=== PATIENT | male | born 1965 | race Caucasian/White ===

== ENCOUNTER 2017-03-28 05:56 | Day surgery (SDC) | payer OTHER, MEDICARE ==
[~2017-03-28] VITALS: Ht 179.1 cm; Wt 70.3 kg
[~2017-03-28 05:56] MED LIST: AMLO10TA2 PO; ASPI1TAB PO; CLON-412 PO; IRON65TA PO; METO1TAB33 PO; MINO10TA PO; RENATAB5 PO; RENV2TAB PO; VITA100067 PO
[2017-03-28] MEDS ORDERED: NS 1,000 ML IV SCH (06:00)
[2017-03-28] MEDS ORDERED: BUPIVACAINE/EPIN 0.25% 30 ML VIAL As Ordered ONE (07:11)
[2017-03-28] MEDS ORDERED: PROPOFOL 200 MG/20 ML VIAL As Ordered ONE (07:14)
[2017-03-28] MEDS ORDERED: GLYCOPYRROLATE INJ 0.2 MG/ML 2 ML VIAL As Ordered ONE (07:14)
[2017-03-28] MEDS ORDERED: ROCURONIUM BROMIDE 50 MG/5 ML VIAL/SYRINGE As Ordered ONE (07:14)
[2017-03-28] MEDS ORDERED: ONDANSETRON 4MG/2ML VIAL (J2405) As Ordered ONE (07:14)
[2017-03-28] MEDS ORDERED: NEOSTIGMINE 1MG/ML 5 ML SYRINGE (J2710) As Ordered ONE (07:14)
[2017-03-28] MEDS ORDERED: MIDAZOLAM INJ 2 MG/2 ML VIAL (J2250) As Ordered ONE (07:14)
[2017-03-28] MEDS ORDERED: fentaNYL 100 MCG/2 ML INJECTION (J3010) As Ordered ONE (07:15)
[2017-03-28] MEDS ORDERED: ONDANSETRON 4MG/2ML VIAL (J2405) IV PRN (09:00)
[2017-03-28] MEDS ORDERED: HYDROmorphone HCL 1 MG/ML SYRINGE (J1170) IV PRN (09:00)
[2017-03-28] MEDS ORDERED: fentaNYL 100 MCG/2 ML INJECTION (J3010) IV PRN (09:00)
[2017-03-28] MEDS ORDERED: NORCO, ANEXSIA 5/325MG TABLET (HYDROcodone/ACETAMINOPHEN) PO PRN (09:00)
[2017-03-28] MEDS: PERCOCET 5MG/325MG TAB PO PRN ×2 (09:04→09:35)
[2017-03-28 11:10] VITALS: BP 143/68
--- NOTE | 2017-03-31 06:15 | RO ---
DATE OF PROCEDURE: 03/28/2017 PREOPERATIVE DIAGNOSIS: Incarcerated umbilical hernia. POSTOPERATIVE DIAGNOSIS: Incarcerated umbilical hernia. PROCEDURE: Laparoscopic incarcerated umbilical hernia repair. SURGEON: Dr. Oconnor SPEECH WRITER: Dr. Morgan ANESTHESIA: General. ESTIMATED BLOOD LOSS: 5. COMPLICATIONS: None. INDICATION FOR PROCEDURE: The patient is a 51-year-old male presents with a history of peritoneal dialysis and umbilical hernia. He has had complications with the hernia increasing in size recently and becoming more tender. I was unable to reduce it in the office and he requested to have it repaired. Recommendation to proceed with laparoscopic, possible open repair. Risks and benefits of the procedure not limited but including bleeding, infection, hernia recurrence, hernia formation, damage to surrounding structures, need for further surgery were discussed in detail with the patient. Informed consent was obtained and procedure was planned. DESCRIPTION OF PROCEDURE: The patient was brought back to operating room #6. After sufficient sedation, the abdomen was sterilely prepped and draped. Next, a time-out was done to confirm proper patient and proper procedure. Following that a 5 mm incision made in left upper quadrant, Veress needle was inserted and the abdomen was insufflated to 50 mmHg. Next a 5 mm Optiview port was used to gain access to the abdomen. Once the abdomen was entered, another 5 mm port was placed in left lower quadrant. Using the Enseal, some adhesions were taken down from his peritoneal dialysis catheter entry site and some omentum that was stuck in his hernia was gently reduced. The hernia sac was excised using the Enseal and brought out through the port site. Next, a 9 cm round Parietex mesh had #0 Vicryl sutures placed in all four corners. This was rolled up, placed inside of the abdomen. Juan Carlos-Vee needle was used to bring the sutures through the abdominal wall as a transfascial suture. These four sutures were then tied in place to hold the mesh. A row of SecureStrap tacks were then placed around the perimeter of the mesh with careful attention made to make sure that we did not place any of the tacks into his peritoneal dialysis catheter as it tunneled through the abdominal wall. Once the mesh was then placed, the abdomen was examined one last time. There was a large left inguinal hernia that was examined. A picture was taken just as documentation to be placed in the chart. Postoperatively, when he woke up, I asked him if he had any problems with this and he denied ever having any knowledge of it. No pain or bulge or anything from this. After pictures taken, the abdomen was desufflated. Skin incisions were closed with #4-0 Vicryl subcuticular sutures. The abdomen cleaned and dried. Steri-Strips, 4 x 4 and Tegaderm were applied, thus ending procedure.
== END 2017-03-28 11:19 | disposition home or self-care (01) ==
LOC: M SDC 05:56
PROVIDERS: ATTEND Surgery
DX: K42.0 Umbilical hernia with obstruction, without gangrene (principal); I12.9 Hypertensive chronic kidney disease with stage 1 through stage 4 chronic kidney disease, or unspecified chronic kidney disease; N18.9 Chronic kidney disease, unspecified; F17.210 Nicotine dependence, cigarettes, uncomplicated; Z79.82 Long term (current) use of aspirin; Z79.899 Other long term (current) drug therapy; Q61.3 Polycystic kidney, unspecified
CPT/HCPCS: 36415; 49653; 84132; C1781; J0690; J2250; J2405; J2710; J3010

== ENCOUNTER 2017-08-03 11:02 | Emergency (ER) | payer MEDICARE, OTHER ==
[~2017-08-03] VITALS: Ht 177.8 cm; Wt 67.7 kg
[2017-08-03] MEDS ORDERED: LIQULIQ6 PO (11:23)
--- NOTE | 2017-08-03 12:54 | REP ---
Clinical: Headache . Comparison: 01/19/2015 . Findings: The ventricles, sulci, and cisterns are normal in position and appearance. Hopkins-white differentiation is maintained. No acute intracranial hemorrhage, mass/mass effect, pathology or trauma/injury. No evidence for acute infarction. No extra-axial fluid collection. Calvarium is intact. Paranasal sinuses and mastoid air cells are clear. Impression: Normal noncontrast head CT. No evidence for acute intracranial pathology or trauma/injury. Signed by Samuel Kim MD 08/03/2017 12:46 P
[2017-08-03 13:16] LABS: BASO # 0.1 10^3/uL (0.0-0.2); BASO % 0.7 % (0.0-1.0); EOS % 0.4 % (0.0-3.0); IMMATURE GRANULOCYTE % 0.3 % (0-0); LYMPH # 1.4 10^3/uL (1.5-4.5); LYMPH % 18.2 % (24.0-44.0); MEAN CORPUSCULAR HEMOGLOBIN 30.8 pg (27.0-33.0); MONO # 0.5 10^3/uL (0.0-0.8); MONO % 6.2 % (0.0-5.0); NEUTROPHILS # 5.6 10^3/uL (1.8-7.7); NEUTROPHILS % 74.2 % (36.0-66.0); PLATELET COUNT, AUTOMATED 281 10^3/uL (150-450); RED CELL DISTRIBUTION WIDTH 12.6 % (11.5-14.5); WHITE BLOOD COUNT 7.6 10^3/uL (4.0-10.0)
[2017-08-03 13:32] LABS: CALCIUM LEVEL 7.6 MG/DL (8.5-10.1); CREATININE FOR GFR 5.75 MG/DL (0.70-1.30); POTASSIUM SERUM 4.2 MEQ/L (3.5-5.1)
[2017-08-03 13:38] LABS: INR 0.87
[2017-08-03] MEDS ORDERED: NORCOTAB PO (14:04)
[2017-08-03] MEDS ORDERED: NORCO, ANEXSIA 5/325MG TABLET (HYDROcodone/ACETAMINOPHEN) PO ONE (14:15)
[2017-08-03 14:25] VITALS: BP 142/69
--- NOTE | 2017-08-03 19:48 | ECGEPIP ---
Stationary ECG Study [facility] - ED Test Date: 2017-08-03 Pat Name: OLAF RNENER Department: Room: - Gender: M Banquet Waiter/Waitress: : [id number] Requested By: NAREN Bowman PA-C Order Number: [id number] Reading MD: Erica Rivera Measurements Intervals [place] Rate: 60 P: 80 MA: 164 QRS: 84 QRSD: 102 T: 55 QT: 440 QTc: 441 Interpretive Statements SINUS RHYTHM DELAYED R WAVE PROGRESSION NONSPECIFIC ST T WAVE CHANGES DELAYED R WAVE PROGRESSION NO OLD ECG FOR COMPARISON Electronically Signed On 08-03-2017 19:48:37 EST by Erica Rivera
== END 2017-08-03 14:26 | disposition home or self-care (01) ==
LOC: M ED 11:02
DX: R51 Headache (principal); I12.0 Hypertensive chronic kidney disease with stage 5 chronic kidney disease or end stage renal disease; N18.6 End stage renal disease; Z99.2 Dependence on renal dialysis; Z72.0 Tobacco use

== ENCOUNTER 2017-08-12 16:21 | Emergency (ER) | payer MEDICARE, OTHER | END 2017-08-12 19:07 | disposition home or self-care (01) | LOC: M ED 16:21 | DX: R51 Headache (principal); I12.0 Hypertensive chronic kidney disease with stage 5 chronic kidney disease or end stage renal disease; N18.6 End stage renal disease; Z99.2 Dependence on renal dialysis; F17.200 Nicotine dependence, unspecified, uncomplicated | CPT/HCPCS: 99283 ==

== ENCOUNTER → 2017-08-22 | Outpatient (REF) | payer MEDICARE, OTHER ==
[2017-08-22 14:05] LABS: BASO # 0.1 10^3/uL (0.0-0.2); BASO % 1.1 % (0.0-1.0); EOS # 0.2 10^3/uL (0.0-0.50); EOS % 1.8 % (0.0-3.0); HEMOGLOBIN 12.3 g/dl (14.0-18.0); IMMATURE GRANULOCYTE % 0.3 % (0-0); LYMPH # 2.1 10^3/uL (1.5-4.5); LYMPH % 23.9 % (24.0-44.0); MEAN CORPUSCULAR HEMOGLOBIN 30.7 pg (27.0-33.0); MEAN CORPUSCULAR HGB CONC 34.2 g/dl (32.0-36.5); MEAN CORPUSCULAR VOLUME 89.8 fl (80.0-96.0); MONO % 11.1 % (0.0-5.0); NEUTROPHILS # 5.5 10^3/uL (1.8-7.7); NEUTROPHILS % 61.8 % (36.0-66.0); PLATELET COUNT, AUTOMATED 294 10^3/uL (150-450); RED BLOOD COUNT 4.01 10^6/uL (4.30-6.10); RED CELL DISTRIBUTION WIDTH 13.2 % (11.5-14.5); WHITE BLOOD COUNT 8.8 10^3/uL (4.0-10.0)
[2017-08-22 14:34] LABS: ALBUMIN 2.9 GM/DL (3.2-5.2); ALBUMIN/GLOBULIN RATIO 0.85 (1.00-1.93); ALKALINE PHOSPHATASE 75 U/L (45-117); ALT/SGPT 19 U/L (12-78); ANION GAP 8 MEQ/L (8-16); AST/SGOT 22 U/L (7-37); BILIRUBIN,TOTAL 0.4 MG/DL (0.2-1.0); BLOOD UREA NITROGEN 64 MG/DL (7-18); CALCIUM LEVEL 8.3 MG/DL (8.5-10.1); CARBON DIOXIDE LEVEL 28 MEQ/L (21-32); CHLORIDE LEVEL 97 MEQ/L (98-107); CREATININE FOR GFR 5.81 MG/DL (0.70-1.30); GLOMERULAR FILTRATION RATE 10.9 (>56); GLUCOSE, FASTING 93 MG/DL (70-105); RHEUMATOID FACTOR QUANT < 10.0 IU/ML (0-15.0); SODIUM LEVEL 133 MEQ/L (136-145); TOTAL PROTEIN 6.3 GM/DL (6.4-8.2)
[2017-08-22 15:29] LABS: ERYTHROCYTE SEDIMENTATION RATE 16 mm/hr (0-20)
[2017-08-23 14:10] LABS: ANTINUCLEAR ANTIBODIES DIRECT Negative (Negative)
== END ==
LOC: M LAB REF 12:44
DX: R51 Headache (principal)
CPT/HCPCS: 80053

== ENCOUNTER 2017-08-28 09:14 | Emergency (ER) | payer MEDICARE, OTHER ==
[2017-08-28 10:32] LABS: ALBUMIN 2.9 GM/DL (3.2-5.2); ANION GAP 6 MEQ/L (8-16); BLOOD UREA NITROGEN 63 MG/DL (7-18); CARBAMAZEPINE (TEGRETOL) LEVEL 8.4 UG/ML (4.0-10.0); CARBON DIOXIDE LEVEL 30 MEQ/L (21-32); CHLORIDE LEVEL 100 MEQ/L (98-107); CREATININE FOR GFR 5.83 MG/DL (0.70-1.30); GLOMERULAR FILTRATION RATE 10.8 (>56); GLUCOSE, FASTING 90 MG/DL (70-105); PHOSPHORUS LEVEL 3.8 MG/DL (2.5-4.9); SODIUM LEVEL 136 MEQ/L (136-145)
== END 2017-08-28 10:55 | disposition home or self-care (01) ==
LOC: M ED 09:14
DX: T42.1X1A Poisoning by iminostilbenes, accidental (unintentional), initial encounter (principal); Y92.9 Unspecified place or not applicable; Y93.9 Activity, unspecified; I10 Essential (primary) hypertension; N18.6 End stage renal disease; Z99.2 Dependence on renal dialysis; Q61.3 Polycystic kidney, unspecified; G44.009 Cluster headache syndrome, unspecified, not intractable; Z79.82 Long term (current) use of aspirin; Z79.899 Other long term (current) drug therapy
CPT/HCPCS: 80156

== ENCOUNTER → 2018-01-01 | Outpatient (CLI) | payer MEDICARE, OTHER | LOC: M SMT 10:25 | DX: M16.0 Bilateral primary osteoarthritis of hip (principal) | CPT/HCPCS: 73502 ==

== ENCOUNTER 2018-01-19 00:11 | Inpatient (IN) | payer OTHER, MEDICARE ==
[~2018-01-19 00:11] MED LIST changes: -AMLO10TA2 PO; -ASPI1TAB PO; -CLON-412 PO; -IRON65TA PO; -METO1TAB33 PO; -MINO10TA PO; +NALOXONE INJ 2 MG/2 ML SYRINGE (J2310) As Ordered; -RENATAB5 PO; -RENV2TAB PO; -VITA100067 PO
[2018-01-19 01:18] LABS: BASO % 0.4 % (0.0-1.0); EOS # 0.1 10^3/uL (0.0-0.50); EOS % 0.9 % (0.0-3.0); HEMATOCRIT 36.7 % (42.0-52.0); HEMOGLOBIN 12.5 g/dl (13.5-17.5); IMMATURE GRANULOCYTE % 0.3 % (0-3.0); LYMPH # 1.4 10^3/uL (1.5-4.5); LYMPH % 20.1 % (24.0-44.0); MEAN CORPUSCULAR HEMOGLOBIN 31.5 pg (27.0-33.0); MEAN CORPUSCULAR HGB CONC 34.1 g/dl (32.0-36.5); MEAN CORPUSCULAR VOLUME 92.4 fl (80.0-96.0); MONO % 14.7 % (0.0-5.0); NEUTROPHILS # 4.3 10^3/uL (1.8-7.7); NEUTROPHILS % 63.6 % (36.0-66.0); PLATELET COUNT, AUTOMATED 144 10^3/uL (150-450); RED BLOOD COUNT 3.97 10^6/uL (4.30-6.10); WHITE BLOOD COUNT 6.8 10^3/uL (4.0-10.0)
[2018-01-19 01:36] LABS: LACTIC ACID SEPSIS PROTOCOL 1.2 MMOL/L (0.4-2.0)
[2018-01-19 01:43] LABS: ALBUMIN 2.7 GM/DL (3.2-5.2); ALBUMIN/GLOBULIN RATIO 0.73 (1.00-1.93); ALKALINE PHOSPHATASE 82 U/L (45-117); ALT/SGPT 24 U/L (12-78); ANION GAP 10 MEQ/L (8-16); AST/SGOT 24 U/L (7-37); BILIRUBIN,DIRECT 0.1 MG/DL (0.0-0.2); BILIRUBIN,TOTAL 0.3 MG/DL (0.2-1.0); BLOOD UREA NITROGEN 60 MG/DL (7-18); CALCIUM LEVEL 7.9 MG/DL (8.5-10.1); CARBON DIOXIDE LEVEL 26 MEQ/L (21-32); CHLORIDE LEVEL 97 MEQ/L (98-107); CREATININE FOR GFR 8.23 MG/DL (0.70-1.30); GLOMERULAR FILTRATION RATE 7.3 (>56); GLUCOSE, FASTING 146 MG/DL (70-100); POTASSIUM SERUM 2.8 MEQ/L (3.5-5.1); SODIUM LEVEL 133 MEQ/L (136-145); TOTAL PROTEIN 6.4 GM/DL (6.4-8.2)
[2018-01-19 01:44] LABS: CARBAMAZEPINE (TEGRETOL) LEVEL 20.3 UG/ML (4.0-10.0); ETHYL ALCOHOL (ETHANOL) < 0.003 % (0.000-0.010)
[2018-01-19 01:48] LABS: ABG BASE EXCESS -3.3 (-2.0-2.0); ABG HCO3 22.1 MEQ/L (22.0-26.0); ABG O2 SATURATION 95.6 % (95.0-99.0); ABG PARTIAL PRESSURE CO2 40.8 mmHg (35.0-45.0); ABG PARTIAL PRESSURE O2 77.7 mmHg (75.0-100.0); ABG STANDARD HCO3 21.7 MEQ/L (22.0-26.0); ABG TOTAL CO2 23.3 MEQ/L (22.0-29.0); ABG pH (ARTERIAL) 7.351 UNITS (7.350-7.450)
[2018-01-19 02:04] LABS: AMMONIA 11 uMOL/L (<32)
[2018-01-19] MEDS ORDERED: ETOMIDATE INJ 20MG/10ML VIAL As Ordered (02:09)
[2018-01-19] MEDS ORDERED: SUCCINYLCHOLINE INJ 200 MG/10 ML VIAL (J0330) As Ordered (02:09)
[2018-01-19] MEDS ORDERED: PROPOFOL 1,000 MG/100 ML VIAL As Ordered (02:13)
[2018-01-19] MEDS: ETOMIDATE INJ 20MG/10ML VIAL IV ×2 (02:27→03:00)
[2018-01-19] MEDS: SUCCINYLCHOLINE INJ 200 MG/10 ML VIAL (J0330) IV ×2 (02:27→03:00)
[2018-01-19] MEDS: NS 1,000 ML IV (02:58)
[2018-01-19] MEDS: PROPOFOL 1,000 MG in APPROPRIATE DILUENT 1 EA IV ×2 (03:00→04:45)
[2018-01-19] MEDS: CHARCOAL ACTIVATED LIQUID 25 GM/120 ML BTL NG (03:00)
[2018-01-19] MEDS: KCL 10MEQ/100ML SWI (KRUN) 10 MEQ in APPROPRIATE DILUENT 1 EA IV ×5 (03:45→13:30)
[2018-01-19 04:07] LABS: AMPHETAMINES LEVEL URINE NEGATIVE (NEGATIVE); BARBITURATES URINE NEGATIVE (NEGATIVE); BENZODIAZEPINES URINE NEGATIVE (NEGATIVE); CANNABINOIDS URINE NEGATIVE (NEGATIVE); COCAINE METABOLITE URINE NEGATIVE (NEGATIVE); METHADONE URINE NEGATIVE (NEGATIVE); OPIATES URINE NEGATIVE (NEGATIVE); PHENCYCLIDINE URINE NEGATIVE (NEGATIVE)
[2018-01-19] MEDS ORDERED: IPRATROPIUM 0.5MG/ALBUTEROL 2.5MG INH SOL UD 3ML (DUONEB)(J7620) NEB (04:30)
[2018-01-19 04:42] LABS: VALPROIC ACID (DEPAKOTE) 46.1 UG/ML (50.0-100.0)
[2018-01-19 04:43] LABS: ACETAMINOPHEN LEVEL < 2.0 UG/ML (10.0-30.0); ALBUMIN 2.5 GM/DL (3.2-5.2); ALBUMIN/GLOBULIN RATIO 0.78 (1.00-1.93); ALKALINE PHOSPHATASE 80 U/L (45-117); ALT/SGPT 22 U/L (12-78); ANION GAP 13 MEQ/L (8-16); AST/SGOT 23 U/L (7-37); BILIRUBIN,TOTAL 0.4 MG/DL (0.2-1.0); BLOOD UREA NITROGEN 59 MG/DL (7-18); CALCIUM LEVEL 7.1 MG/DL (8.5-10.1); CARBON DIOXIDE LEVEL 24 MEQ/L (21-32); CHLORIDE LEVEL 98 MEQ/L (98-107); CPK CREATINE PHOSPHOKINASE 61 U/L (39-308); GLUCOSE, FASTING 122 MG/DL (70-100); POTASSIUM SERUM 3.2 MEQ/L (3.5-5.1); SALICYLATE LEVEL < 1.7 MG/DL (5.0-30.0); SODIUM LEVEL 135 MEQ/L (136-145); TOTAL PROTEIN 5.7 GM/DL (6.4-8.2)
[2018-01-19 05:02] LABS: CREATININE FOR GFR 8.14 MG/DL (0.70-1.30); GLOMERULAR FILTRATION RATE 7.4 (>56)
[2018-01-19 05:55] LABS: CARBAMAZEPINE (TEGRETOL) LEVEL 19.9 UG/ML (4.0-10.0)
[2018-01-19] MEDS: HEPARIN SOD (PORCINE) 5000 UNITS/ML VIAL SC ×3 (06:33→21:55)
[2018-01-19] MEDS: IPRATROPIUM 0.5MG/ALBUTEROL 2.5MG INH SOL UD 3ML (DUONEB)(J7620) NEB ×4 (08:06→19:35)
[2018-01-19 08:15] LABS: ABG BASE EXCESS -3.5 (-2.0-2.0); ABG HCO3 21.9 MEQ/L (22.0-26.0); ABG O2 SATURATION 99.4 % (95.0-99.0); ABG PARTIAL PRESSURE CO2 40.8 mmHg (35.0-45.0); ABG PARTIAL PRESSURE O2 222.6 mmHg (75.0-100.0); ABG STANDARD HCO3 21.6 MEQ/L (22.0-26.0); ABG TOTAL CO2 23.2 MEQ/L (22.0-29.0); ABG pH (ARTERIAL) 7.348 UNITS (7.350-7.450)
[2018-01-19] MEDS: ASPIRIN 81 MG ENTERIC TAB PO (08:52)
[2018-01-19] MEDS: PANTOPRAZOLE 40MG INJ (PROTONIX) (C9113) IV (08:52)
[2018-01-19] MEDS: amLODIPine 10 MG TAB PO (08:52)
[2018-01-19] MEDS: SENOKOT S TAB PO ×2 (08:52→21:55)
[2018-01-19] MEDS: cloNIDine 0.1 MG TAB PO (08:53)
[2018-01-19 12:50] LABS: BASO % 0.3 % (0.0-1.0); EOS % 0.3 % (0.0-3.0); HEMOGLOBIN 12.7 g/dl (13.5-17.5); IMMATURE GRANULOCYTE % 0.3 % (0-3.0); LYMPH # 0.7 10^3/uL (1.5-4.5); LYMPH % 10.6 % (24.0-44.0); MEAN CORPUSCULAR HEMOGLOBIN 31.1 pg (27.0-33.0); MEAN CORPUSCULAR HGB CONC 33.4 g/dl (32.0-36.5); MEAN CORPUSCULAR VOLUME 92.9 fl (80.0-96.0); MONO # 0.8 10^3/uL (0.0-0.8); MONO % 11.4 % (0.0-5.0); NEUTROPHILS # 5.4 10^3/uL (1.8-7.7); NEUTROPHILS % 77.1 % (36.0-66.0); PLATELET COUNT, AUTOMATED 130 10^3/uL (150-450); RED BLOOD COUNT 4.09 10^6/uL (4.30-6.10); RED CELL DISTRIBUTION WIDTH 12.2 % (11.5-14.5)
[2018-01-19 13:08] LABS: ALBUMIN 2.8 GM/DL (3.2-5.2); ALKALINE PHOSPHATASE 80 U/L (45-117); ALT/SGPT 24 U/L (12-78); ANION GAP 14 MEQ/L (8-16); AST/SGOT 25 U/L (7-37); BILIRUBIN,TOTAL 0.5 MG/DL (0.2-1.0); BLOOD UREA NITROGEN 58 MG/DL (7-18); CALCIUM LEVEL 7.7 MG/DL (8.5-10.1); CARBON DIOXIDE LEVEL 24 MEQ/L (21-32); CHLORIDE LEVEL 98 MEQ/L (98-107); CREATININE FOR GFR 7.96 MG/DL (0.70-1.30); GLOMERULAR FILTRATION RATE 7.6 (>56); GLUCOSE, FASTING 98 MG/DL (70-100); MAGNESIUM LEVEL 2.4 MG/DL (1.8-2.4); POTASSIUM SERUM 3.1 MEQ/L (3.5-5.1); SODIUM LEVEL 136 MEQ/L (136-145); TOTAL PROTEIN 5.9 GM/DL (6.4-8.2)
[2018-01-19 13:14] LABS: VALPROIC ACID (DEPAKOTE) 31.6 UG/ML (50.0-100.0)
[2018-01-19 13:14] LABS: CARBAMAZEPINE (TEGRETOL) LEVEL 14.1 UG/ML (4.0-10.0)
[2018-01-19] MEDS: POTASSIUM CHLORIDE 10 MEQ SR TABLET PO (14:48)
[2018-01-20] MEDS: ACETAMINOPHEN TAB 650MG DOSE (2X325MG) PO ×4 (01:31→19:54)
[2018-01-20] MEDS: IPRATROPIUM 0.5MG/ALBUTEROL 2.5MG INH SOL UD 3ML (DUONEB)(J7620) NEB ×7 (03:49→23:43)
[2018-01-20 05:10] LABS: BASO % 0.3 % (0.0-1.0); EOS % 0.3 % (0.0-3.0); HEMATOCRIT 35.2 % (42.0-52.0); HEMOGLOBIN 12.3 g/dl (13.5-17.5); IMMATURE GRANULOCYTE % 0.3 % (0-3.0); LYMPH # 1.3 10^3/uL (1.5-4.5); MEAN CORPUSCULAR HEMOGLOBIN 31.8 pg (27.0-33.0); MEAN CORPUSCULAR HGB CONC 34.9 g/dl (32.0-36.5); MONO # 1.1 10^3/uL (0.0-0.8); MONO % 15.8 % (0.0-5.0); NEUTROPHILS # 4.2 10^3/uL (1.8-7.7); NEUTROPHILS % 63.3 % (36.0-66.0); PLATELET COUNT, AUTOMATED 123 10^3/uL (150-450); RED BLOOD COUNT 3.87 10^6/uL (4.30-6.10); RED CELL DISTRIBUTION WIDTH 12.1 % (11.5-14.5); WHITE BLOOD COUNT 6.7 10^3/uL (4.0-10.0)
[2018-01-20 05:18] LABS: ALBUMIN 2.4 GM/DL (3.2-5.2); ALBUMIN/GLOBULIN RATIO 0.67 (1.00-1.93); ALKALINE PHOSPHATASE 133 U/L (45-117); ALT/SGPT 47 U/L (12-78); ANION GAP 10 MEQ/L (8-16); AST/SGOT 52 U/L (7-37); BILIRUBIN,TOTAL 0.4 MG/DL (0.2-1.0); BLOOD UREA NITROGEN 53 MG/DL (7-18); CALCIUM LEVEL 7.6 MG/DL (8.5-10.1); CARBON DIOXIDE LEVEL 24 MEQ/L (21-32); CHLORIDE LEVEL 98 MEQ/L (98-107); CREATININE FOR GFR 7.44 MG/DL (0.70-1.30); GLOMERULAR FILTRATION RATE 8.2 (>56); GLUCOSE, FASTING 118 MG/DL (70-100); MAGNESIUM LEVEL 2.2 MG/DL (1.8-2.4); POTASSIUM SERUM 2.8 MEQ/L (3.5-5.1); SODIUM LEVEL 132 MEQ/L (136-145)
[2018-01-20] MEDS: HEPARIN SOD (PORCINE) 5000 UNITS/ML VIAL SC ×3 (05:55→21:07)
[2018-01-20] MEDS: POTASSIUM CHLORIDE 10 MEQ SR TABLET PO (06:17)
[2018-01-20] MEDS: PANTOPRAZOLE 40MG INJ (PROTONIX) (C9113) IV (08:35)
[2018-01-20] MEDS: cloNIDine 0.1 MG TAB PO (08:36)
[2018-01-20] MEDS: amLODIPine 10 MG TAB PO (08:36)
[2018-01-20] MEDS: ASPIRIN 81 MG ENTERIC TAB PO (08:36)
[2018-01-20] MEDS: SENOKOT S TAB PO ×2 (08:36→21:06)
[2018-01-20 11:28] LABS: MAGNESIUM LEVEL 2.3 MG/DL (1.8-2.4)
[2018-01-20] MEDS: POTASSIUM CHLORIDE 10% LIQ 20 MEQ/15 ML UDC PO (11:43)
[2018-01-20] MEDS: VANCOMYCIN HCL 1,000 MG, VIAL MATE ADAPTER 1 EACH in D5W 250 ML IV (17:28)
[2018-01-21] MEDS: ACETAMINOPHEN TAB 650MG DOSE (2X325MG) PO ×4 (00:21→19:55)
[2018-01-21] MEDS: IPRATROPIUM 0.5MG/ALBUTEROL 2.5MG INH SOL UD 3ML (DUONEB)(J7620) NEB ×6 (03:57→23:55)
[2018-01-21 05:24] LABS: BASO % 0.5 % (0.0-1.0); EOS % 0.2 % (0.0-3.0); HEMATOCRIT 33.6 % (42.0-52.0); HEMOGLOBIN 11.3 g/dl (13.5-17.5); IMMATURE GRANULOCYTE % 0.2 % (0-3.0); LYMPH # 1.6 10^3/uL (1.5-4.5); MEAN CORPUSCULAR HGB CONC 33.6 g/dl (32.0-36.5); MEAN CORPUSCULAR VOLUME 92.1 fl (80.0-96.0); MONO # 1.2 10^3/uL (0.0-0.8); MONO % 20.3 % (0.0-5.0); NEUTROPHILS % 51.8 % (36.0-66.0); PLATELET COUNT, AUTOMATED 127 10^3/uL (150-450); RED BLOOD COUNT 3.65 10^6/uL (4.30-6.10); WHITE BLOOD COUNT 5.9 10^3/uL (4.0-10.0)
[2018-01-21 05:42] LABS: ALBUMIN 2.3 GM/DL (3.2-5.2); ALBUMIN/GLOBULIN RATIO 0.66 (1.00-1.93); ALKALINE PHOSPHATASE 128 U/L (45-117); ALT/SGPT 60 U/L (12-78); ANION GAP 12 MEQ/L (8-16); AST/SGOT 47 U/L (7-37); BILIRUBIN,TOTAL 0.3 MG/DL (0.2-1.0); BLOOD UREA NITROGEN 48 MG/DL (7-18); CALCIUM LEVEL 7.7 MG/DL (8.5-10.1); CARBON DIOXIDE LEVEL 24 MEQ/L (21-32); CHLORIDE LEVEL 97 MEQ/L (98-107); CREATININE FOR GFR 6.99 MG/DL (0.70-1.30); GLOMERULAR FILTRATION RATE 8.8 (>56); GLUCOSE, FASTING 106 MG/DL (70-100); MAGNESIUM LEVEL 2.1 MG/DL (1.8-2.4); POTASSIUM SERUM 3.3 MEQ/L (3.5-5.1); SODIUM LEVEL 133 MEQ/L (136-145); TOTAL PROTEIN 5.8 GM/DL (6.4-8.2)
[2018-01-21] MEDS: POTASSIUM CHLORIDE 10 MEQ SR TABLET PO (07:14)
[2018-01-21 08:05] LABS: CARBAMAZEPINE (TEGRETOL) LEVEL 2.2 UG/ML (4.0-10.0); VALPROIC ACID (DEPAKOTE) 8.8 UG/ML (50.0-100.0)
[2018-01-21] MEDS: POTASSIUM CHLORIDE 10% LIQ 20 MEQ/15 ML UDC PO (08:30)
[2018-01-21] MEDS: ASPIRIN 81 MG ENTERIC TAB PO (08:31)
[2018-01-21] MEDS: amLODIPine 10 MG TAB PO (08:31)
[2018-01-21] MEDS: SENOKOT S TAB PO ×2 (08:31→19:55)
[2018-01-21] MEDS: PANTOPRAZOLE 40MG INJ (PROTONIX) (C9113) IV (08:31)
[2018-01-21] MEDS: cloNIDine 0.1 MG TAB PO (08:31)
[2018-01-22] MEDS: IPRATROPIUM 0.5MG/ALBUTEROL 2.5MG INH SOL UD 3ML (DUONEB)(J7620) NEB ×5 (03:51→21:31)
[2018-01-22] MEDS: ACETAMINOPHEN TAB 650MG DOSE (2X325MG) PO ×4 (06:08→20:36)
[2018-01-22 08:52] LABS: BASO % 0.6 % (0.0-1.0); HEMATOCRIT 34.1 % (42.0-52.0); HEMOGLOBIN 11.5 g/dl (13.5-17.5); IMMATURE GRANULOCYTE % 0.1 % (0-3.0); LYMPH # 1.8 10^3/uL (1.5-4.5); LYMPH % 25.6 % (24.0-44.0); MEAN CORPUSCULAR HEMOGLOBIN 31.3 pg (27.0-33.0); MEAN CORPUSCULAR HGB CONC 33.7 g/dl (32.0-36.5); MEAN CORPUSCULAR VOLUME 92.9 fl (80.0-96.0); MONO # 1.4 10^3/uL (0.0-0.8); MONO % 19.7 % (0.0-5.0); NEUTROPHILS # 3.8 10^3/uL (1.8-7.7); PLATELET COUNT, AUTOMATED 176 10^3/uL (150-450); RED BLOOD COUNT 3.67 10^6/uL (4.30-6.10); RED CELL DISTRIBUTION WIDTH 12.3 % (11.5-14.5)
[2018-01-22 09:25] LABS: ALBUMIN 2.6 GM/DL (3.2-5.2); ALBUMIN/GLOBULIN RATIO 0.76 (1.00-1.93); ALKALINE PHOSPHATASE 139 U/L (45-117); ALT/SGPT 91 U/L (12-78); ANION GAP 11 MEQ/L (8-16); AST/SGOT 56 U/L (7-37); BILIRUBIN,TOTAL 0.3 MG/DL (0.2-1.0); BLOOD UREA NITROGEN 48 MG/DL (7-18); CARBON DIOXIDE LEVEL 25 MEQ/L (21-32); CHLORIDE LEVEL 96 MEQ/L (98-107); GLOMERULAR FILTRATION RATE 9.4 (>56); GLUCOSE, FASTING 142 MG/DL (70-100); MAGNESIUM LEVEL 1.9 MG/DL (1.8-2.4); POTASSIUM SERUM 3.9 MEQ/L (3.5-5.1); SODIUM LEVEL 132 MEQ/L (136-145)
[2018-01-22] MEDS: PANTOPRAZOLE 40MG INJ (PROTONIX) (C9113) IV (10:01)
[2018-01-22] MEDS: SENOKOT S TAB PO ×2 (10:01→20:34)
[2018-01-22] MEDS: ASPIRIN 81 MG ENTERIC TAB PO (10:01)
[2018-01-22] MEDS: DIVALPROEX 500MG *ER* TAB PO ×2 (10:02→20:34)
[2018-01-22] MEDS: VERAPAMIL 80 MG TAB PO (10:02)
[2018-01-22] MEDS: POTASSIUM CHLORIDE 10% LIQ 20 MEQ/15 ML UDC PO (10:02)
[2018-01-22] MEDS: cloNIDine 0.1 MG TAB PO (10:03)
[2018-01-22] MEDS: VERAPAMIL 40 MG TAB PO (20:33)
[2018-01-23] MEDS: IPRATROPIUM 0.5MG/ALBUTEROL 2.5MG INH SOL UD 3ML (DUONEB)(J7620) NEB ×7 (00:26→23:15)
[2018-01-23] MEDS: ACETAMINOPHEN TAB 650MG DOSE (2X325MG) PO (00:38)
[2018-01-23] MEDS: DIVALPROEX 500MG *ER* TAB PO ×2 (08:50→21:00)
[2018-01-23] MEDS: VERAPAMIL 40 MG TAB PO ×3 (08:50→21:00)
[2018-01-23] MEDS: POTASSIUM CHLORIDE 10% LIQ 20 MEQ/15 ML UDC PO (08:50)
[2018-01-23] MEDS: cloNIDine 0.1 MG TAB PO (08:50)
[2018-01-23] MEDS: SENOKOT S TAB PO ×2 (08:50→21:00)
[2018-01-23] MEDS: PANTOPRAZOLE 40MG INJ (PROTONIX) (C9113) IV (08:50)
[2018-01-23] MEDS: ASPIRIN 81 MG ENTERIC TAB PO (08:50)
[2018-01-23 09:16] LABS: BASO % 0.4 % (0.0-1.0); HEMATOCRIT 33.6 % (42.0-52.0); HEMOGLOBIN 11.3 g/dl (13.5-17.5); IMMATURE GRANULOCYTE % 0.4 % (0-3.0); LYMPH # 2.5 10^3/uL (1.5-4.5); LYMPH % 28.7 % (24.0-44.0); MEAN CORPUSCULAR HEMOGLOBIN 31.1 pg (27.0-33.0); MEAN CORPUSCULAR HGB CONC 33.6 g/dl (32.0-36.5); MEAN CORPUSCULAR VOLUME 92.6 fl (80.0-96.0); MONO # 1.6 10^3/uL (0.0-0.8); MONO % 19.2 % (0.0-5.0); NEUTROPHILS # 4.4 10^3/uL (1.8-7.7); NEUTROPHILS % 51.3 % (36.0-66.0); PLATELET COUNT, AUTOMATED 245 10^3/uL (150-450); RED BLOOD COUNT 3.63 10^6/uL (4.30-6.10); RED CELL DISTRIBUTION WIDTH 12.4 % (11.5-14.5); WHITE BLOOD COUNT 8.6 10^3/uL (4.0-10.0)
[2018-01-23 09:51] LABS: ALBUMIN 2.7 GM/DL (3.2-5.2); ALBUMIN/GLOBULIN RATIO 0.79 (1.00-1.93); ALKALINE PHOSPHATASE 142 U/L (45-117); ALT/SGPT 111 U/L (12-78); ANION GAP 13 MEQ/L (8-16); AST/SGOT 59 U/L (7-37); BILIRUBIN,TOTAL 0.3 MG/DL (0.2-1.0); BLOOD UREA NITROGEN 49 MG/DL (7-18); CALCIUM LEVEL 8.2 MG/DL (8.5-10.1); CARBON DIOXIDE LEVEL 24 MEQ/L (21-32); CHLORIDE LEVEL 95 MEQ/L (98-107); CREATININE FOR GFR 6.18 MG/DL (0.70-1.30); GLOMERULAR FILTRATION RATE 10.1 (>56); GLUCOSE, FASTING 108 MG/DL (70-100); POTASSIUM SERUM 4.2 MEQ/L (3.5-5.1); SODIUM LEVEL 132 MEQ/L (136-145); TOTAL PROTEIN 6.1 GM/DL (6.4-8.2)
[2018-01-24] MEDS: IPRATROPIUM 0.5MG/ALBUTEROL 2.5MG INH SOL UD 3ML (DUONEB)(J7620) NEB ×3 (04:00→11:10)
[2018-01-24 07:30] LABS: BASO % 0.5 % (0.0-1.0); HEMOGLOBIN 10.5 g/dl (13.5-17.5); IMMATURE GRANULOCYTE % 0.2 % (0-3.0); LYMPH # 2.6 10^3/uL (1.5-4.5); LYMPH % 31.7 % (24.0-44.0); MEAN CORPUSCULAR HEMOGLOBIN 31.6 pg (27.0-33.0); MEAN CORPUSCULAR HGB CONC 33.9 g/dl (32.0-36.5); MEAN CORPUSCULAR VOLUME 93.4 fl (80.0-96.0); MONO # 1.9 10^3/uL (0.0-0.8); MONO % 22.7 % (0.0-5.0); NEUTROPHILS # 3.7 10^3/uL (1.8-7.7); NEUTROPHILS % 44.9 % (36.0-66.0); PLATELET COUNT, AUTOMATED 280 10^3/uL (150-450); RED BLOOD COUNT 3.32 10^6/uL (4.30-6.10); RED CELL DISTRIBUTION WIDTH 12.6 % (11.5-14.5); WHITE BLOOD COUNT 8.2 10^3/uL (4.0-10.0)
[2018-01-24 07:58] LABS: ALBUMIN 2.5 GM/DL (3.2-5.2); ALBUMIN/GLOBULIN RATIO 0.78 (1.00-1.93); ALKALINE PHOSPHATASE 121 U/L (45-117); ALT/SGPT 93 U/L (12-78); ANION GAP 12 MEQ/L (8-16); AST/SGOT 42 U/L (7-37); BILIRUBIN,TOTAL 0.3 MG/DL (0.2-1.0); BLOOD UREA NITROGEN 49 MG/DL (7-18); CALCIUM LEVEL 8.1 MG/DL (8.5-10.1); CARBON DIOXIDE LEVEL 25 MEQ/L (21-32); CHLORIDE LEVEL 95 MEQ/L (98-107); CREATININE FOR GFR 5.81 MG/DL (0.70-1.30); GLOMERULAR FILTRATION RATE 10.9 (>56); GLUCOSE, FASTING 96 MG/DL (70-100); MAGNESIUM LEVEL 1.9 MG/DL (1.8-2.4); POTASSIUM SERUM 4.8 MEQ/L (3.5-5.1); SODIUM LEVEL 132 MEQ/L (136-145); TOTAL PROTEIN 5.7 GM/DL (6.4-8.2)
[2018-01-24] MEDS: cloNIDine 0.1 MG TAB PO (09:00)
[2018-01-24] MEDS: VERAPAMIL 40 MG TAB PO (09:00)
[2018-01-24] MEDS: ASPIRIN 81 MG ENTERIC TAB PO (10:06)
[2018-01-24] MEDS: SENOKOT S TAB PO (10:06)
[2018-01-24] MEDS: POTASSIUM CHLORIDE 10% LIQ 20 MEQ/15 ML UDC PO (10:06)
[2018-01-24] MEDS: DIVALPROEX 500MG *ER* TAB PO (10:06)
[2018-01-24] MEDS: PANTOPRAZOLE 40MG INJ (PROTONIX) (C9113) IV (10:07)
== END 2018-01-24 14:24 | disposition home or self-care (01) | DRG 917 ==
LOC: M MSPAV 01-21 12:55 → M ED 00:11 → M ED INP 02:58 → M ICU 04:50
PROC: 5A1945Z Respiratory Ventilation, 24-96 Consecutive Hours (ICD-10-PCS; principal; 2018-01-19)
DX: T42.1X1A Poisoning by iminostilbenes, accidental (unintentional), initial encounter (principal); N18.6 End stage renal disease; J96.90 Respiratory failure, unspecified, unspecified whether with hypoxia or hypercapnia; Q61.3 Polycystic kidney, unspecified; R78.81 Bacteremia; E87.6 Hypokalemia; I10 Essential (primary) hypertension; G44.029 Chronic cluster headache, not intractable; I67.1 Cerebral aneurysm, nonruptured; Z79.82 Long term (current) use of aspirin; Z79.899 Other long term (current) drug therapy; F17.210 Nicotine dependence, cigarettes, uncomplicated

== ENCOUNTER → 2018-01-27 | Outpatient (CLI) | payer MEDICARE, OTHER ==
[2018-01-27 15:03] LABS: ALBUMIN/GLOBULIN RATIO 0.83 (1.00-1.93); ALKALINE PHOSPHATASE 106 U/L (45-117); ALT/SGPT 59 U/L (12-78); ANION GAP 12 MEQ/L (8-16); AST/SGOT 21 U/L (7-37); BILIRUBIN,TOTAL 0.3 MG/DL (0.2-1.0); BLOOD UREA NITROGEN 62 MG/DL (7-18); CALCIUM LEVEL 8.9 MG/DL (8.5-10.1); CARBON DIOXIDE LEVEL 28 MEQ/L (21-32); CHLORIDE LEVEL 95 MEQ/L (98-107); CREATININE FOR GFR 6.64 MG/DL (0.70-1.30); GLOMERULAR FILTRATION RATE 9.3 (>56); GLUCOSE, FASTING 73 MG/DL (70-100); SODIUM LEVEL 135 MEQ/L (136-145); TOTAL PROTEIN 6.6 GM/DL (6.4-8.2); VALPROIC ACID (DEPAKOTE) 46.2 UG/ML (50.0-100.0)
[2018-01-27 15:04] LABS: POTASSIUM SERUM 5.4 MEQ/L (3.5-5.1)
== END ==
LOC: M SMT 12:18
DX: G44.009 Cluster headache syndrome, unspecified, not intractable (principal); Z51.81 Encounter for therapeutic drug level monitoring; Z79.899 Other long term (current) drug therapy

== ENCOUNTER → 2018-01-27 | Outpatient (CLI) | payer MEDICARE, OTHER ==
[2018-01-27 14:21] LABS: BASO # 0.1 10^3/uL (0.0-0.2); BASO % 0.8 % (0.0-1.0); HEMATOCRIT 36.6 % (42.0-52.0); HEMOGLOBIN 11.9 g/dl (13.5-17.5); IMMATURE GRANULOCYTE % 0.2 % (0-3.0); LYMPH # 3.1 10^3/uL (1.5-4.5); LYMPH % 31.9 % (24.0-44.0); MEAN CORPUSCULAR HEMOGLOBIN 30.8 pg (27.0-33.0); MEAN CORPUSCULAR HGB CONC 32.5 g/dl (32.0-36.5); MEAN CORPUSCULAR VOLUME 94.8 fl (80.0-96.0); MONO # 1.6 10^3/uL (0.0-0.8); MONO % 16.5 % (0.0-5.0); NEUTROPHILS % 50.6 % (36.0-66.0); PLATELET COUNT, AUTOMATED 525 10^3/uL (150-450); RED BLOOD COUNT 3.86 10^6/uL (4.30-6.10); RED CELL DISTRIBUTION WIDTH 12.5 % (11.5-14.5); WHITE BLOOD COUNT 9.8 10^3/uL (4.0-10.0)
[2018-01-27 15:04] LABS: C REACTIVE PROTEIN QUANTITATIV < 0.30 MG/DL (0.00-0.30)
[2018-01-27 15:15] LABS: ERYTHROCYTE SEDIMENTATION RATE 26 mm/hr (0-20)
== END ==
LOC: M SMT 12:12
DX: R78.81 Bacteremia (principal); G44.009 Cluster headache syndrome, unspecified, not intractable; Z51.81 Encounter for therapeutic drug level monitoring; Z79.899 Other long term (current) drug therapy
CPT/HCPCS: 80164

== ENCOUNTER 2018-02-06 05:50 | Day surgery (SDC) | payer MEDICARE, OTHER ==
[2018-02-06] MEDS ORDERED: LIDOCAINE 1% MDV 20ML VIAL SQ (06:00)
[2018-02-06] MEDS: LR 1,000 ML IV (06:25)
[2018-02-06 06:39] LABS: POTASSIUM SERUM 4.6 MEQ/L (3.5-5.1)
[2018-02-06] MEDS ORDERED: ONDANSETRON 4MG/2ML VIAL (J2405) As Ordered (07:24)
[2018-02-06] MEDS ORDERED: fentaNYL 250 MCG/5 ML INJECTION (J3010) As Ordered (07:24)
[2018-02-06] MEDS ORDERED: MIDAZOLAM INJ 2 MG/2 ML VIAL (J2250) As Ordered (07:24)
[2018-02-06] MEDS ORDERED: dexameTHASONE 4 MG/ML 1ML VIAL (J1100) As Ordered (07:24)
[2018-02-06] MEDS ORDERED: LIDOCAINE 2% INJ 100 MG/5 ML SDV (FOR ANES.) As Ordered (07:24)
[2018-02-06] MEDS ORDERED: ROCURONIUM BROMIDE 50 MG/5 ML VIAL As Ordered (07:24)
[2018-02-06] MEDS ORDERED: PROPOFOL 200 MG/20 ML VIAL As Ordered (07:24)
[2018-02-06] MEDS: BUPIVACAINE/EPIN 0.25% 30 ML VIAL As Ordered (08:00)
[2018-02-06] MEDS ORDERED: GLYCOPYRROLATE INJ 0.2 MG/ML 2 ML VIAL As Ordered ×2 (08:36)
[2018-02-06] MEDS ORDERED: NEOSTIGMINE 10 MG/10 ML VIAL (J2710) As Ordered (08:36)
[2018-02-06] MEDS ORDERED: fentaNYL 100 MCG/2 ML INJECTION (J3010) IV (09:30)
[2018-02-06] MEDS ORDERED: METOCLOPRAMIDE INJ 10MG/2ML VIAL (J2765) IV (09:30)
[2018-02-06] MEDS ORDERED: NS 1,000 ML IV (09:30)
[2018-02-06] MEDS ORDERED: ONDANSETRON 4MG/2ML VIAL (J2405) IV (09:30)
[2018-02-06] MEDS ORDERED: NORCO, ANEXSIA 5/325MG TABLET (HYDROcodone/ACETAMINOPHEN) PO (09:30)
== END 2018-02-06 11:29 | disposition home or self-care (01) ==
LOC: M SDC 05:50
DX: K40.30 Unilateral inguinal hernia, with obstruction, without gangrene, not specified as recurrent (principal); D17.6 Benign lipomatous neoplasm of spermatic cord; G44.009 Cluster headache syndrome, unspecified, not intractable; N19 Unspecified kidney failure; Z99.2 Dependence on renal dialysis; I10 Essential (primary) hypertension; F17.210 Nicotine dependence, cigarettes, uncomplicated; Z79.899 Other long term (current) drug therapy; Z79.82 Long term (current) use of aspirin
CPT/HCPCS: 49650

== ENCOUNTER → 2019-12-10 | Outpatient (CLI) | payer MEDICARE, OTHER ==
[~2019-12-10] MED LIST changes: +AMLO10TA5 PO; +ASPI81TA26 PO; +CARB100T PO; +CLON-412 PO; +DEPA250T32 PO; +DEPA500T2 PO; +DIVA500T9 PO; +HYDR-3715 PO; +IRON65TA PO; +LIQULIQ6 PO; +METO1TAB33 PO; +MINO10TA PO; -NALOXONE INJ 2 MG/2 ML SYRINGE (J2310) As Ordered; +RENATAB5 PO; +RENV2TAB PO; +SENN1TAB41 PO; +VERA40TA PO; +VITA100067 PO; +[UNRECOGNIZED DRUG - CODE] PO
--- NOTE | 2019-12-10 12:22 | REPPI ---
REASON FOR EXAM: Dyspnea. The latest prior for comparison is a portable examination of 01/19/2018. The cardiomediastinal silhouette is unchanged and within normal limits. The lung bahena are clear. The pleural angles are sharp. There is a thin air density beneath the diaphragmatic surface of the right lung. The osseous structures are stable and intact. IMPRESSION: Thin right-sided subdiaphragmatic curvilinear air density. This was not present on the latest prior exam. I cannot rule out the possibility of free intraperitoneal air. A stat report was generated at the time of this dictation. A phone call was placed to Dr. Blayne Mary to discuss these findings. Electronically Signed by Mike Sanders DO 12/10/2019 12:34 P
== END ==
LOC: M PLAIMG 11:20
PROVIDERS: ATTEND Internal Medicine Cardiovascular Disease
DX: R06.00 Dyspnea, unspecified (principal)

== ENCOUNTER → 2022-06-10 | Outpatient (CLI) | payer MEDICARE, OTHER ==
[~2022-06-10] MED LIST changes: -AMLO10TA5 PO; +AMLO1TAB25 PO; +ISOVUE-370 76% 100ML VIAL As Ordered ONE
== END ==
LOC: M RAD 09:21
PROVIDERS: ATTEND Internal Medicine Nephrology
DX: J44.9 Chronic obstructive pulmonary disease, unspecified (principal); E87.1 Hypo-osmolality and hyponatremia; N18.6 End stage renal disease
CPT/HCPCS: 71260; Q9967

== ENCOUNTER 2024-10-28 11:27 | Inpatient (IN) | payer MEDICARE, OTHER ==
[~2024-10-28] VITALS: Ht 177.8 cm; Wt 65.6 kg
[~2024-10-28 11:27] MED LIST changes: -CARB100T PO; +CARB100T11 PO; -ISOVUE-370 76% 100ML VIAL As Ordered ONE; -SENN1TAB41 PO; +SENN1TAB85 PO
[2024-10-28] MEDS: ALBUTEROL SULFATE 2.5MG/0.5ML INH NEB SOLN INH ONE (11:58)
[2024-10-28] MEDS: IPRATROPIUM 0.5MG/ALBUTEROL 2.5MG INH SOL UD 3ML (DUONEB) NEB ONE (11:58)
[2024-10-28 12:04] LABS: BASO # 0.1 10^3/uL (0.0-0.2); BASO % 0.2 % (0.0-1.0); HEMATOCRIT 44.6 % (42.0-52.0); HEMOGLOBIN 15.2 g/dl (13.5-17.5); LYMPH # 1.3 10^3/uL (1.5-5.0); LYMPH % 6.6 % (24.0-44.0); MEAN CORPUSCULAR HEMOGLOBIN 32.1 pg (27.0-33.0); MEAN CORPUSCULAR HGB CONC 34.1 g/dl (32.0-36.5); MEAN CORPUSCULAR VOLUME 94.1 fl (80.0-96.0); MONO # 1.8 10^3/uL (0.0-0.8); MONO % 8.7 % (2.0-8.0); NEUTROPHILS % 84.1 % (36.0-66.0); PLATELET COUNT, AUTOMATED 246 10^3/uL (150-450); RED BLOOD COUNT 4.74 10^6/uL (4.30-6.10); WHITE BLOOD COUNT 20.2 10^3/uL (4.0-10.0)
[2024-10-28 12:22] LABS: ABG BASE EXCESS -0.3 (-2.0-2.0); ABG HCO3 24.2 MMOL/L (22.0-26.0); ABG O2 SATURATION 95.6 % (95.0-99.0); ABG PARTIAL PRESSURE CO2 39.4 mmHg (35.0-45.0); ABG PARTIAL PRESSURE O2 75.1 mmHg (75.0-100.0); ABG STANDARD HCO3 24.2 MMOL/L. (22.0-26.0); ABG TOTAL CO2 25.4 MMOL/L (23.0-31.0); ABG pH (ARTERIAL) 7.406 UNITS (7.350-7.450)
[2024-10-28 12:42] LABS: ALBUMIN 2.4 G/DL (3.2-5.2); BILIRUBIN,DIRECT 0.2 MG/DL (<0.4); BILIRUBIN,TOTAL 0.4 MG/DL (0.3-1.2); CALCIUM LEVEL 8.5 MG/DL (8.3-10.6); CREATININE FOR GFR 11.65 MG/DL (0.70-1.30); GLOMERULAR FILTRATION RATE 4.8 (>49); POTASSIUM SERUM 3.8 MMOL/L (3.5-5.1); TOTAL PROTEIN 6.1 G/DL (5.7-8.2)
[2024-10-28 13:26] LABS: CK-MB VALUE MASS 1.2 NG/ML (<3.6)
[2024-10-28 13:27] LABS: MB/CK RELATIVE INDEX 0.92 (< OR =4)
[2024-10-28 14:03] LABS: CK-MB VALUE MASS 1.1 NG/ML (<3.6); MB/CK RELATIVE INDEX 0.69 (< OR =4)
[2024-10-28] MEDS: OSELTAMIVIR PHOSPHATE 75 MG CAP PO ONE (15:13)
[2024-10-28] MEDS ORDERED: ALBUTEROL SULFATE 2.5MG/0.5ML INH NEB SOLN NEB PRN (15:25)
[2024-10-28] MEDS ORDERED: ACETAMINOPHEN 325 MG TAB PO PRN (15:25)
[2024-10-28] MEDS ORDERED: MAGN71.5 PO (15:57)
[2024-10-28] MEDS ORDERED: BUDE10.7 INH (15:57)
[2024-10-28] MEDS ORDERED: CALC1CAP31 PO (15:57)
[2024-10-28] MEDS ORDERED: VITA100093 PO (15:57)
[2024-10-28] MEDS ORDERED: AURY1TAB PO (15:57)
[2024-10-28] MEDS ORDERED: HOME MED LIST COMPLETE! XX SCH (16:00)
[2024-10-28] MEDS: IPRATROPIUM 0.5MG/ALBUTEROL 2.5MG INH SOL UD 3ML (DUONEB) NEB SCH (16:34)
[2024-10-28 17:32] LABS: INR 0.84; PARTIAL THROMBOPLASTIN TIME 28.4 SECONDS (24.8-34.2); PROTHROMBIN TIME 11.8 SECONDS (12.5-14.5)
[2024-10-28] MEDS: methylPREDNISolone 125MG 2ML VIAL IV SCH (18:34)
[2024-10-28] MEDS: NICOTINE 21MG/24HR 1 EA TRANSDERMAL TD SCH (18:35)
[2024-10-28] MEDS: (RENVELA) SEVELAMER **CARBONate** 800 MG TAB PO SCH (18:43)
[2024-10-28] MEDS: SYMBICORT 160/4.5MCG INHALER 6GM INH SCH (20:22)
[2024-10-28] MEDS: GLYCOPYRROLATE INJ 0.2 MG/ML 2 ML VIAL NEB SCH (20:23)
[2024-10-28] MEDS ORDERED: OSELTAMIVIR PHOSPHATE 75 MG CAP PO SCH (21:00)
[2024-10-28 22:00] VITALS: BP 113/71; TEMP 97.9; O2SAT 92
[2024-10-29 04:01] VITALS: BP 137/74; TEMP 97; O2SAT 93
[2024-10-29] MEDS: HEPARIN SOD (PORCINE) 5000UNITS/ML 1ML VIAL/SYRINGE SC SCH (05:36)
[2024-10-29 06:24] LABS: HEMATOCRIT 40.2 % (42.0-52.0); HEMOGLOBIN 13.9 g/dl (13.5-17.5); MEAN CORPUSCULAR HEMOGLOBIN 31.8 pg (27.0-33.0); MEAN CORPUSCULAR HGB CONC 34.6 g/dl (32.0-36.5); PLATELET COUNT, AUTOMATED 245 10^3/uL (150-450); RED BLOOD COUNT 4.37 10^6/uL (4.30-6.10); WHITE BLOOD COUNT 15.6 10^3/uL (4.0-10.0)
[2024-10-29 06:49] LABS: ALBUMIN 2.2 G/DL (3.2-5.2); BILIRUBIN,TOTAL 0.3 MG/DL (0.3-1.2); CREATININE FOR GFR 12.81 MG/DL (0.70-1.30); GLOMERULAR FILTRATION RATE 4.3 (>49); POTASSIUM SERUM 3.7 MMOL/L (3.5-5.1); TOTAL PROTEIN 5.7 G/DL (5.7-8.2)
[2024-10-29] MEDS: cloNIDine 0.1MG TABLET PO SCH (07:53)
[2024-10-29] MEDS: ASPIRIN 81MG ENTERIC TABLET PO SCH (07:54)
[2024-10-29] MEDS: CALCITRIOL 0.25 MCG CAP (S0169) PO SCH (07:54)
[2024-10-29] MEDS: VITAMIN D 1,000 INTERNATIONAL UNITS TABLET PO SCH (07:55)
[2024-10-29 08:00] VITALS: BP 145/72; TEMP 97.5
[2024-10-29] MEDS: cefTRIAXone SOD 1 GM in DEXTROSE 5% (D5W) ADV/MINI-BAG 50 ML IV SCH (09:00)
[2024-10-29] MEDS: DOXYCYCLINE HYCLATE 100MG TABLET PO SCH (09:00)
[2024-10-29 12:00] VITALS: BP 133/71; TEMP 97.7; O2SAT 88
[2024-10-29] MEDS: guaiFENesin ER TABLET 600 MG TAB PO SCH (12:38)
[2024-10-29 17:13] VITALS: BP 144/85; TEMP 97.7; O2SAT 88
[2024-10-29 18:10] LABS: CALCIUM LEVEL 8.1 MG/DL (8.3-10.6); CREATININE FOR GFR 12.01 MG/DL (0.70-1.30); GLOMERULAR FILTRATION RATE 4.6 (>49); MAGNESIUM LEVEL 1.9 MG/DL (1.8-2.4); PHOSPHORUS LEVEL 5.7 MG/DL (2.4-5.1); POTASSIUM SERUM 3.4 MMOL/L (3.5-5.1)
[2024-10-29 20:12] VITALS: BP 141/85; TEMP 97; O2SAT 91
[2024-10-29] MEDS: POTASSIUM CHLORIDE 10MEQ SR TABLET PO ONE (20:31)
[2024-10-29 20:35] VITALS: BP 116/80; O2SAT 89
[2024-10-29] MEDS ORDERED: LEVALBUTEROL 1.25MG 0.5ML CONCENTRATE NEB INH PRN (21:15)
[2024-10-30] VITALS (9 sets, daily range): BP systolic 149–166; BP diastolic 84–87; TEMP 97–98.2; O2SAT 90–94
[2024-10-30] MEDS ORDERED: METOPROLOL 5 MG/5 ML VIAL IV STA (01:46)
[2024-10-30] MEDS: SCOPOLAMINE 1MG TRANSDERMAL PATCH TOP ONE (01:55)
[2024-10-30] MEDS: METOPROLOL TART 12.5 MG PER 1/2 TAB PO STA (02:00)
[2024-10-30] MEDS: CALCIUM CARBONATE 500 MG CHEW U/D PO ONE (02:10)
[2024-10-30 02:41] LABS: CALCIUM LEVEL 9.3 MG/DL (8.3-10.6); CREATININE FOR GFR 11.42 MG/DL (0.70-1.30); GLOMERULAR FILTRATION RATE 4.9 (>49); POTASSIUM SERUM 3.3 MMOL/L (3.5-5.1)
[2024-10-30] MEDS: KCL 10MEQ/100ML SWI (KRUN) 10 MEQ in IV 1 EA IV SCH (02:55)
[2024-10-30 03:37] LABS: HEMATOCRIT 42.9 % (42.0-52.0); HEMOGLOBIN 14.8 g/dl (13.5-17.5); MEAN CORPUSCULAR HEMOGLOBIN 31.9 pg (27.0-33.0); MEAN CORPUSCULAR HGB CONC 34.5 g/dl (32.0-36.5); MEAN CORPUSCULAR VOLUME 92.5 fl (80.0-96.0); PLATELET COUNT, AUTOMATED 271 10^3/uL (150-450); RED BLOOD COUNT 4.64 10^6/uL (4.30-6.10); WHITE BLOOD COUNT 16.7 10^3/uL (4.0-10.0)
[2024-10-30 04:40] LABS: MAGNESIUM LEVEL 1.9 MG/DL (1.8-2.4)
[2024-10-30] MEDS: MAG SULF 1GM/100ML (MAG RUN) 1 GM in IV 1 EA IV ONE (05:02)
[2024-10-30 06:51] LABS: HEMOGLOBIN 14.4 g/dl (13.5-17.5); MEAN CORPUSCULAR HEMOGLOBIN 31.7 pg (27.0-33.0); MEAN CORPUSCULAR HGB CONC 34.3 g/dl (32.0-36.5); MEAN CORPUSCULAR VOLUME 92.5 fl (80.0-96.0); PLATELET COUNT, AUTOMATED 280 10^3/uL (150-450); RED BLOOD COUNT 4.54 10^6/uL (4.30-6.10)
[2024-10-30 07:38] LABS: ALBUMIN 2.4 G/DL (3.2-5.2); BILIRUBIN,TOTAL 0.2 MG/DL (0.3-1.2); CALCIUM LEVEL 9.6 MG/DL (8.3-10.6); CREATININE FOR GFR 11.81 MG/DL (0.70-1.30); GLOMERULAR FILTRATION RATE 4.7 (>49); POTASSIUM SERUM 3.6 MMOL/L (3.5-5.1); TOTAL PROTEIN 6.2 G/DL (5.7-8.2)
[2024-10-30] MEDS: LEVALBUTEROL 1.25MG 0.5ML CONCENTRATE NEB INH SCH (08:45)
[2024-10-30] MEDS: IPRATROPIUM 0.02% SOLN 0.5MG 2.5ML NEB INH SCH (08:47)
[2024-10-30] MEDS: DOXYCYCLINE HYCLATE 100 MG in DEXTROSE 5% (D5W) MINI-BAG PLU 100 ML IV SCH (12:50)
[2024-10-30] MEDS ORDERED: ONDANSETRON 4MG 2ML VIAL IV PRN (17:55)
[2024-10-30] MEDS: METOPROLOL TART 25 MG TABLET PO SCH (18:23)
[2024-10-30] MEDS: SENNA 8.6 MG TAB (SENOKOT) PO SCH (22:21)
[2024-10-30] MEDS: DOCUSATE SODIUM 100MG CAPSULE PO SCH (22:21)
[2024-10-30] MEDS: PANTOPRAZOLE 40MG VIAL IV SCH (22:29)
[2024-10-30] MEDS: METOCLOPRAMIDE INJ 10MG/2ML VIAL IV PRN (22:29)
[2024-10-31] VITALS (10 sets, daily range): BP systolic 129–148; BP diastolic 76–82; TEMP 96.4–97.9; O2SAT 85–94
[2024-10-31 06:20] LABS: HEMATOCRIT 41.7 % (42.0-52.0); MEAN CORPUSCULAR HEMOGLOBIN 31.5 pg (27.0-33.0); MEAN CORPUSCULAR HGB CONC 33.6 g/dl (32.0-36.5); MEAN CORPUSCULAR VOLUME 93.9 fl (80.0-96.0); PLATELET COUNT, AUTOMATED 239 10^3/uL (150-450); RED BLOOD COUNT 4.44 10^6/uL (4.30-6.10); WHITE BLOOD COUNT 19.4 10^3/uL (4.0-10.0)
[2024-10-31 06:56] LABS: ALBUMIN 2.2 G/DL (3.2-5.2); BILIRUBIN,TOTAL 0.2 MG/DL (0.3-1.2); CALCIUM LEVEL 8.3 MG/DL (8.3-10.6); CREATININE FOR GFR 10.86 MG/DL (0.70-1.30); GLOMERULAR FILTRATION RATE 5.2 (>49); POTASSIUM SERUM 3.9 MMOL/L (3.5-5.1); TOTAL PROTEIN 5.7 G/DL (5.7-8.2)
[2024-10-31] MEDS: predniSONE 20 MG TAB PO SCH (08:34)
[2024-10-31] MEDS: FLEET OIL RETENTION ENEMA PR ONE (11:05)
[2024-10-31] MEDS: DOXYCYCLINE HYCLATE 100MG TABLET PO SCH (11:35)
[2024-11-01 04:05] VITALS: BP 155/85; TEMP 97.3; O2SAT 92
[2024-11-01 06:34] LABS: HEMATOCRIT 41.4 % (42.0-52.0); HEMOGLOBIN 13.9 g/dl (13.5-17.5); MEAN CORPUSCULAR HEMOGLOBIN 31.2 pg (27.0-33.0); MEAN CORPUSCULAR HGB CONC 33.6 g/dl (32.0-36.5); PLATELET COUNT, AUTOMATED 303 10^3/uL (150-450); RED BLOOD COUNT 4.45 10^6/uL (4.30-6.10); WHITE BLOOD COUNT 17.9 10^3/uL (4.0-10.0)
[2024-11-01 07:02] LABS: ALBUMIN 2.4 G/DL (3.2-5.2); BILIRUBIN,TOTAL 0.2 MG/DL (0.3-1.2); CALCIUM LEVEL 8.2 MG/DL (8.3-10.6); CREATININE FOR GFR 10.16 MG/DL (0.70-1.30); GLOMERULAR FILTRATION RATE 5.6 (>49); POTASSIUM SERUM 3.5 MMOL/L (3.5-5.1); TOTAL PROTEIN 5.7 G/DL (5.7-8.2)
[2024-11-01] MEDS: POTASSIUM CHLORIDE 10MEQ SR TABLET PO SCH (09:59)
[2024-11-01] MEDS ORDERED: FLEET OIL RETENTION ENEMA PR PRN (10:30)
[2024-11-01] MEDS: CEPACOL LOZENGE PO PRN (11:54)
[2024-11-01 12:00] VITALS: BP 147/83; TEMP 97.9; O2SAT 94
[2024-11-01] MEDS: LACTULOSE 20GM/30ML SYRUP UDC PO SCH (19:03)
[2024-11-01 20:07] VITALS: BP 144/80; TEMP 97.1; O2SAT 88
[2024-11-01] MEDS: BISACODYL 10MG SUPP PR SCH (21:00)
[2024-11-01] MEDS: DOCUSATE SODIUM 100MG CAPSULE PO SCH (22:02)
[2024-11-02 04:35] VITALS: BP_SYST 155; BP_SYST 55; BP_DIAS 82; TEMP 97.1; O2SAT 90
[2024-11-02 06:41] LABS: HEMOGLOBIN 13.9 g/dl (13.5-17.5); MEAN CORPUSCULAR HEMOGLOBIN 31.7 pg (27.0-33.0); MEAN CORPUSCULAR HGB CONC 34.8 g/dl (32.0-36.5); MEAN CORPUSCULAR VOLUME 91.3 fl (80.0-96.0); PLATELET COUNT, AUTOMATED 323 10^3/uL (150-450); RED BLOOD COUNT 4.38 10^6/uL (4.30-6.10); WHITE BLOOD COUNT 17.5 10^3/uL (4.0-10.0)
[2024-11-02 07:21] LABS: ALBUMIN 2.3 G/DL (3.2-5.2); BILIRUBIN,TOTAL 0.2 MG/DL (0.3-1.2); CALCIUM LEVEL 8.7 MG/DL (8.3-10.6); CREATININE FOR GFR 10.34 MG/DL (0.70-1.30); GLOMERULAR FILTRATION RATE 5.5 (>49); POTASSIUM SERUM 3.5 MMOL/L (3.5-5.1); TOTAL PROTEIN 5.6 G/DL (5.7-8.2)
[2024-11-02 11:45] VITALS: BP 146/78; TEMP 97.9; O2SAT 91
[2024-11-02] MEDS ORDERED: VANCOMYCIN HCL 1,000 MG, VIAL MATE ADAPTER 1 EACH in NS 250 ML IV SCH (18:45)
[2024-11-02] MEDS ORDERED: PIPERACILLIN/TAZOBACTAM SOD 3.375 GM in DEXTROSE 5% (D5W) ADV/MINI-BAG 50 ML IV SCH (18:45)
[2024-11-02] MEDS ORDERED: VANCOMYCIN INTERMITTENT/PULSE DOSING BY CLINICAL PHARMACIST PER DOSING PROTOCOL XX SCH (19:35)
[2024-11-02] MEDS: FORMOTEROL FUMARATE 20 MCG/2 ML INHALATION SOLUTION (PERFOROMIST) INH SCH (19:43)
[2024-11-02] MEDS: BUDESONIDE 0.25 MG/2 ML INHALATION SUSPENSION INH SCH (19:43)
[2024-11-02 20:00] VITALS: BP 147/77; TEMP 97.7; O2SAT 91
[2024-11-02] MEDS: VANCOMYCIN HCL 1,250 MG, VIAL MATE ADAPTER 1 EACH in NS 250 ML IV ONE (21:10)
[2024-11-02] MEDS: PIPERACILLIN/TAZOBACTAM SOD 4.5 GM in DEXTROSE 5% (D5W) ADV/MINI-BAG 50 ML IV SCH (21:10)
[2024-11-03] VITALS (18 sets, daily range): BP systolic 134–151; BP diastolic 74–76; TEMP 97–97.9; O2SAT 86–95
[2024-11-03 06:15] LABS: HEMATOCRIT 38.2 % (42.0-52.0); HEMOGLOBIN 13.3 g/dl (13.5-17.5); MEAN CORPUSCULAR HEMOGLOBIN 31.6 pg (27.0-33.0); MEAN CORPUSCULAR HGB CONC 34.8 g/dl (32.0-36.5); MEAN CORPUSCULAR VOLUME 90.7 fl (80.0-96.0); PLATELET COUNT, AUTOMATED 352 10^3/uL (150-450); RED BLOOD COUNT 4.21 10^6/uL (4.30-6.10); WHITE BLOOD COUNT 17.5 10^3/uL (4.0-10.0)
[2024-11-03 06:50] LABS: ALBUMIN 2.2 G/DL (3.2-5.2); BILIRUBIN,TOTAL 0.3 MG/DL (0.3-1.2); CALCIUM LEVEL 8.5 MG/DL (8.3-10.6); CREATININE FOR GFR 10.05 MG/DL (0.70-1.30); GLOMERULAR FILTRATION RATE 5.6 (>49); POTASSIUM SERUM 3.7 MMOL/L (3.5-5.1); TOTAL PROTEIN 5.2 G/DL (5.7-8.2)
[2024-11-04 04:00] VITALS: BP 153/76; TEMP 97.9; O2SAT 92
[2024-11-04 05:25] LABS: HEMATOCRIT 39.5 % (42.0-52.0); HEMOGLOBIN 13.7 g/dl (13.5-17.5); MEAN CORPUSCULAR HEMOGLOBIN 31.3 pg (27.0-33.0); MEAN CORPUSCULAR HGB CONC 34.7 g/dl (32.0-36.5); MEAN CORPUSCULAR VOLUME 90.2 fl (80.0-96.0); PLATELET COUNT, AUTOMATED 356 10^3/uL (150-450); RED BLOOD COUNT 4.38 10^6/uL (4.30-6.10); WHITE BLOOD COUNT 16.9 10^3/uL (4.0-10.0)
[2024-11-04 05:49] LABS: ALBUMIN 2.1 G/DL (3.2-5.2); BILIRUBIN,TOTAL 0.3 MG/DL (0.3-1.2); CALCIUM LEVEL 8.9 MG/DL (8.3-10.6); CREATININE FOR GFR 10.07 MG/DL (0.70-1.30); GLOMERULAR FILTRATION RATE 5.6 (>49); TOTAL PROTEIN 5.3 G/DL (5.7-8.2)
[2024-11-04 12:00] VITALS: BP 148/83; TEMP 97.7; O2SAT 91
[2024-11-04 20:00] VITALS: BP 121/63; TEMP 97; O2SAT 91
[2024-11-05 03:26] VITALS: BP 158/68; TEMP 97; O2SAT 94
[2024-11-05 05:28] VITALS: O2SAT 90
[2024-11-05 05:33] LABS: HEMATOCRIT 39.2 % (42.0-52.0); HEMOGLOBIN 13.6 g/dl (13.5-17.5); MEAN CORPUSCULAR HEMOGLOBIN 31.4 pg (27.0-33.0); MEAN CORPUSCULAR HGB CONC 34.7 g/dl (32.0-36.5); MEAN CORPUSCULAR VOLUME 90.5 fl (80.0-96.0); PLATELET COUNT, AUTOMATED 375 10^3/uL (150-450); RED BLOOD COUNT 4.33 10^6/uL (4.30-6.10); WHITE BLOOD COUNT 20.7 10^3/uL (4.0-10.0)
[2024-11-05 05:54] LABS: ALBUMIN 2.1 G/DL (3.2-5.2); BILIRUBIN,TOTAL 0.3 MG/DL (0.3-1.2); CREATININE FOR GFR 9.99 MG/DL (0.70-1.30); GLOMERULAR FILTRATION RATE 5.7 (>49); POTASSIUM SERUM 4.1 MMOL/L (3.5-5.1); TOTAL PROTEIN 5.2 G/DL (5.7-8.2)
[2024-11-05 12:00] VITALS: BP 131/86; TEMP 97.7; O2SAT 92
[2024-11-05 20:17] VITALS: BP 130/76; TEMP 97.5; O2SAT 95
[2024-11-06 03:42] VITALS: BP 146/76; TEMP 97.3; O2SAT 92
[2024-11-06] MEDS: predniSONE 10MG TAB PO SCH (09:13)
[2024-11-06 12:00] VITALS: BP 129/75; TEMP 97.7; O2SAT 92
[2024-11-06 19:02] VITALS: O2SAT 91
[2024-11-06 19:29] VITALS: BP 115/65; TEMP 97.7; O2SAT 93
[2024-11-07 03:46] VITALS: BP 148/76; TEMP 97.5; O2SAT 93
[2024-11-07 05:04] LABS: BASO # 0.1 10^3/uL (0.0-0.2); BASO % 0.3 % (0.0-1.0); EOS # 0.3 10^3/uL (0.0-0.5); HEMATOCRIT 42.9 % (42.0-52.0); HEMOGLOBIN 14.9 g/dl (13.5-17.5); LYMPH # 5.3 10^3/uL (1.5-5.0); LYMPH % 19.5 % (24.0-44.0); MEAN CORPUSCULAR HEMOGLOBIN 32.1 pg (27.0-33.0); MEAN CORPUSCULAR HGB CONC 34.7 g/dl (32.0-36.5); MEAN CORPUSCULAR VOLUME 92.5 fl (80.0-96.0); MONO # 2.4 10^3/uL (0.0-0.8); MONO % 8.6 % (2.0-8.0); NEUTROPHILS # 18.3 10^3/uL (1.5-8.5); NEUTROPHILS % 67.5 % (36.0-66.0); PLATELET COUNT, AUTOMATED 401 10^3/uL (150-450); RED BLOOD COUNT 4.64 10^6/uL (4.30-6.10); WHITE BLOOD COUNT 27.2 10^3/uL (4.0-10.0)
[2024-11-07 05:30] LABS: CALCIUM LEVEL 9.5 MG/DL (8.3-10.6); CREATININE FOR GFR 9.76 MG/DL (0.70-1.30); GLOMERULAR FILTRATION RATE 5.8 (>49); POTASSIUM SERUM 4.1 MMOL/L (3.5-5.1)
[2024-11-07] MEDS: PANTOPRAZOLE 40MG TAB (PROTONIX) PO SCH (10:14)
[2024-11-07 12:00] VITALS: BP 132/81; TEMP 97.5; O2SAT 92
[2024-11-07] MEDS: MIRALAX *UNIT DOSE* 17GM PACKET PO PRN (14:16)
[2024-11-07 20:29] VITALS: BP 133/80; TEMP 97.9; O2SAT 97
[2024-11-08 05:58] VITALS: BP 149/82; TEMP 97.3; O2SAT 91
[2024-11-08 06:08] LABS: BASO # 0.1 10^3/uL (0.0-0.2); BASO % 0.3 % (0.0-1.0); EOS # 0.2 10^3/uL (0.0-0.5); EOS % 0.8 % (0.0-3.0); HEMATOCRIT 43.2 % (42.0-52.0); HEMOGLOBIN 14.7 g/dl (13.5-17.5); LYMPH # 5.2 10^3/uL (1.5-5.0); LYMPH % 19.3 % (24.0-44.0); MEAN CORPUSCULAR HEMOGLOBIN 31.4 pg (27.0-33.0); MEAN CORPUSCULAR VOLUME 92.3 fl (80.0-96.0); MONO # 2.2 10^3/uL (0.0-0.8); MONO % 8.1 % (2.0-8.0); NEUTROPHILS # 18.8 10^3/uL (1.5-8.5); NEUTROPHILS % 69.5 % (36.0-66.0); PLATELET COUNT, AUTOMATED 378 10^3/uL (150-450); RED BLOOD COUNT 4.68 10^6/uL (4.30-6.10); WHITE BLOOD COUNT 27.1 10^3/uL (4.0-10.0)
[2024-11-08 06:47] LABS: CALCIUM LEVEL 9.2 MG/DL (8.3-10.6); CREATININE FOR GFR 10.04 MG/DL (0.70-1.30); GLOMERULAR FILTRATION RATE 5.6 (>49); POTASSIUM SERUM 4.6 MMOL/L (3.5-5.1)
[2024-11-08 08:18] VITALS: BP 128/79
[2024-11-08] MEDS ORDERED: BISACODYL 10MG SUPP PR PRN (08:30)
[2024-11-08] MEDS: SENNA 8.6 MG TAB (SENOKOT) PO SCH (09:00)
[2024-11-08] MEDS: MIRALAX *UNIT DOSE* 17GM PACKET PO SCH (09:00)
[2024-11-08] MEDS ORDERED: BARIUM SULFATE 700 MG TABLET (E-Z-DISK) As Ordered ONE (09:37)
[2024-11-08] MEDS ORDERED: E-Z-PAQUE 96% w/w SUSP 176GM BTL As Ordered ONE (09:37)
[2024-11-08] MEDS ORDERED: VARIBAR NECTAR 40% w/v 240ML SUSP BTL As Ordered ONE (09:37)
[2024-11-08] MEDS ORDERED: VARIBAR PUDDING 40% w/v 230ML TUBE As Ordered ONE (09:37)
[2024-11-08] MEDS ORDERED: PANT40TA29 PO (11:36)
[2024-11-08] MEDS ORDERED: COLA100C5 PO (11:36)
[2024-11-08] MEDS ORDERED: MUCI600T31 PO (11:36)
[2024-11-08] MEDS ORDERED: METO1TAB87 PO (11:36)
[2024-11-08] MEDS ORDERED: PRED10TA2 PO (11:36)
[2024-11-08] MEDS ORDERED: POTA-136 PO (11:36)
== END 2024-11-08 12:49 | disposition home or self-care (01) | DRG 871 ==
LOC: M ED 11:27 → EDBD 11:27 → M ED INP 15:25 → M MSPAV 21:39
PROVIDERS: ADMIT Internal Medicine; ATTEND Internal Medicine Nephrology
DX: A41.9 Sepsis, unspecified organism (principal); N18.6 End stage renal disease; J96.01 Acute respiratory failure with hypoxia; J10.08 Influenza due to other identified influenza virus with other specified pneumonia; J15.9 Unspecified bacterial pneumonia; J44.1 Chronic obstructive pulmonary disease with (acute) exacerbation; Q61.3 Polycystic kidney, unspecified; I12.0 Hypertensive chronic kidney disease with stage 5 chronic kidney disease or end stage renal disease; E87.1 Hypo-osmolality and hyponatremia; I47.20 Ventricular tachycardia, unspecified; I47.10 Supraventricular tachycardia, unspecified; E21.1 Secondary hyperparathyroidism, not elsewhere classified; I49.3 Ventricular premature depolarization; K59.00 Constipation, unspecified; R13.10 Dysphagia, unspecified; F17.200 Nicotine dependence, unspecified, uncomplicated; Z79.899 Other long term (current) drug therapy; Z79.82 Long term (current) use of aspirin; K70.30 Alcoholic cirrhosis of liver without ascites; D64.9 Anemia, unspecified

== ENCOUNTER 2025-02-20 06:26 | Inpatient (IN) | payer MEDICARE, OTHER ==
[~2025-02-20] VITALS: Ht 177.8 cm; Wt 67.5 kg
[~2025-02-20 06:26] MED LIST changes: +ACET1TAB55 PO; +AURY1TAB PO; +BUDE10.7 INH; +CALC1CAP31 PO; +COLA100C5 PO; -DEPA250T32 PO; +DIVA-65 PO; +LIDO1ADH93 TOP; +MAGN71.5 PO; +METO1TAB87 PO; +MUCI600T31 PO; +OXYC1TAB23 PO; +PANT40TA29 PO; +POTA-136 PO; +PRED10TA2 PO; +VITA100093 PO
[2025-02-20] MEDS ORDERED: METO1TAB7 PO (06:46)
[2025-02-20 12:00] LABS: BASO # 0.1 10^3/uL (0.0-0.2); BASO % 0.8 % (0.0-1.0); EOS # 0.2 10^3/uL (0.0-0.5); EOS % 1.0 % (0.0-3.0); LYMPH # 2.5 10^3/uL (1.5-5.0); LYMPH % 14.8 % (24.0-44.0); MONO # 1.3 10^3/uL (0.0-0.8); MONO % 7.9 % (2.0-8.0); NEUTROPHILS # 12.5 10^3/uL (1.5-8.5); NEUTROPHILS % 75.2 % (36.0-66.0); PLATELET COUNT, AUTOMATED 393 10^3/uL (150-450)
[2025-02-20 12:45] LABS: ALT/SGPT 18.0 U/L (7.0-40); AST/SGOT 26.0 U/L (<34); CALCIUM LEVEL 9.2 MG/DL (8.3-10.6); CARBON DIOXIDE LEVEL 30.0 MMOL/L (20-31); CHLORIDE LEVEL 92.0 MMOL/L (98-107); CREATININE FOR GFR 8.62 MG/DL (0.70-1.30); GLOMERULAR FILTRATION RATE 6.5 (>49); POTASSIUM SERUM 4.2 MMOL/L (3.5-5.1); SODIUM LEVEL 134.0 MMOL/L (136-145)
[2025-02-20 13:00] LABS: ERYTHROCYTE SEDIMENTATION RATE 37 mm/hr (0-20)
[2025-02-20 13:07] LABS: C REACTIVE PROTEIN QUANTITATIV 1.24 MG/DL (<1.0)
[2025-02-20] MEDS ORDERED: VANCOMYCIN HCL 1,000 MG, VIAL MATE ADAPTER 1 EACH in NS 250 ML IP ONE (16:00)
[2025-02-20] MEDS: VANCOMYCIN HCL 1,000 MG, VIAL MATE ADAPTER 1 EACH in NS 250 ML IV ONE (16:15)
[2025-02-20] MEDS: NS 500 ML IV ONE (16:16)
[2025-02-20] MEDS ORDERED: POTA10CA70 PO (16:25)
[2025-02-20] MEDS ORDERED: PIPERACILLIN/TAZOBACTAM SOD 3.375 GM in DEXTROSE 5% (D5W) ADV/MINI-BAG 50 ML IV SCH (17:10)
[2025-02-20] MEDS ORDERED: VANCOMYCIN HCL 1,000 MG, VIAL MATE ADAPTER 1 EACH in NS 250 ML IV SCH (17:10)
[2025-02-20] MEDS: VANCOMYCIN HCL 500 MG in DEXTROSE 5% (D5W) MINI-BAG PLU 100 ML IV ONE (17:30)
[2025-02-20] MEDS ORDERED: VANCOMYCIN INTERMITTENT/PULSE DOSING BY CLINICAL PHARMACIST PER DOSING PROTOCOL XX SCH (17:30)
[2025-02-20] MEDS: PIPERACILLIN/TAZOBACTAM SOD 2.25 GM in DEXTROSE 5% (D5W) ADV/MINI-BAG 50 ML IV ONE (17:36)
[2025-02-20] MEDS ORDERED: MIRALAX *UNIT DOSE* 17 GM PACKET PO PRN (18:05)
[2025-02-20] MEDS ORDERED: HOME MED LIST COMPLETE! XX SCH (18:10)
[2025-02-20] MEDS ORDERED: LIDOCAINE 2% 100 MG/5 ML SDV (FOR ANES.) As Ordered ONE (18:14)
[2025-02-20] MEDS ORDERED: MIDAZOLAM INJ 2 MG/2 ML VIAL As Ordered ONE (18:14)
[2025-02-20] MEDS: VANCOMYCIN 500MG/10ML VIAL As Ordered ONE (18:59)
[2025-02-20] MEDS ORDERED: HYDROMORPHONE HCL 0.5 MG/0.5 ML SYRINGE IV PRN (19:15)
[2025-02-20] MEDS ORDERED: MORPHINE 4 MG/ML 1 ML VIAL IV PRN (19:25)
[2025-02-20 19:50] VITALS: BP 165/74; TEMP 97.1; O2SAT 98
[2025-02-20] MEDS: SYMBICORT 160/4.5MCG INHALER 6GM INH SCH (20:00)
[2025-02-20] MEDS: PANTOPRAZOLE 40MG VIAL IV SCH (20:55)
[2025-02-20] MEDS: SENNA 8.6 MG TAB PO SCH (20:55)
[2025-02-20] MEDS: DOCUSATE SODIUM 100 MG CAPSULE PO SCH (20:55)
[2025-02-20] MEDS: NICOTINE 21 MG/24 HR 1 EA TRANSDERMAL TD SCH (20:56)
[2025-02-21] MEDS: PIPERACILLIN/TAZOBACTAM SOD 4.5 GM in DEXTROSE 5% (D5W) ADV/MINI-BAG 50 ML IV SCH (01:42)
[2025-02-21] MEDS: MORPHINE 2 MG/ML 1 ML VIAL IV PRN ×2 (02:39→08:15)
[2025-02-21 04:24] VITALS: BP 129/64; TEMP 98.8; O2SAT 93
[2025-02-21 06:37] LABS: PLATELET COUNT, AUTOMATED 366 10^3/uL (150-450)
[2025-02-21 06:47] LABS: VANCOMYCIN RANDOM 19.8 UG/ML
[2025-02-21 07:11] LABS: ALT/SGPT 15 U/L (7.0-40); AST/SGOT 19 U/L (<34); CALCIUM LEVEL 8.4 MG/DL (8.3-10.6); CARBON DIOXIDE LEVEL 25 MMOL/L (20-31); CHLORIDE LEVEL 95 MMOL/L (98-107); CREATININE FOR GFR 9.54 MG/DL (0.70-1.30); GLOMERULAR FILTRATION RATE 5.7 (>49); POTASSIUM SERUM 3.7 MMOL/L (3.5-5.1); SODIUM LEVEL 132 MMOL/L (136-145)
[2025-02-21] MEDS: TIOTROPIUM BROM 2.5MCG/ACTUATION 4GM INH INH SCH (07:51)
[2025-02-21 08:00] VITALS: BP 142/67; TEMP 98.4; O2SAT 92
[2025-02-21] MEDS: SEVELAMER *CARBONate* 800 MG TAB PO SCH (08:16)
[2025-02-21] MEDS: VITAMIN D 1,000 INTERNATIONAL UNITS TABLET PO SCH (08:16)
[2025-02-21] MEDS: ASPIRIN 81 MG ENTERIC TABLET PO SCH (08:16)
[2025-02-21] MEDS: POTASSIUM CHLORIDE 10MEQ SR TABLET PO SCH (08:16)
[2025-02-21] MEDS: CALCITRIOL 0.25 MCG CAP (S0169) PO SCH (08:17)
[2025-02-21] MEDS: METOPROLOL SUCC. 50 MG *XL* TAB PO SCH (08:17)
[2025-02-21 12:29] LABS: PHOSPHORUS LEVEL 4.1 MG/DL (2.4-5.1)
[2025-02-21 12:37] LABS: HEPATITIS B SURFACE ANTIBODY POSITIVE (POSITIVE)
[2025-02-21 13:10] LABS: HEPATITIS C VIRUS ABY INDEX < 0.02 INDEX (<0.8)
[2025-02-21 14:00] VITALS: BP 127/65; TEMP 99; O2SAT 95
[2025-02-21 19:34] VITALS: BP 115/63; TEMP 98.6; O2SAT 94
[2025-02-22 04:21] VITALS: BP 136/82; TEMP 97.7; O2SAT 96
[2025-02-22] MEDS ORDERED: LIDOCAINE 1% SDV 5 ML VIAL SC PRN (06:00)
[2025-02-22] MEDS ORDERED: SODIUM CHLORIDE 0.9% 1000 ML IV PRN (06:00)
[2025-02-22] MEDS ORDERED: HEPARIN 1,000 UNITS/ML 10 ML VIAL (FOR RADIOLOGY & DIALYSIS ONLY) IV PRN (06:00)
[2025-02-22 07:16] LABS: PLATELET COUNT, AUTOMATED 387 10^3/uL (150-450)
[2025-02-22 07:46] LABS: VANCOMYCIN RANDOM 16.8 UG/ML
[2025-02-22 08:03] LABS: ALT/SGPT 11.0 U/L (7.0-40); AST/SGOT 16.0 U/L (<34); CALCIUM LEVEL 8.6 MG/DL (8.3-10.6); CARBON DIOXIDE LEVEL 26.0 MMOL/L (20-31); CHLORIDE LEVEL 96.0 MMOL/L (98-107); CREATININE FOR GFR 11.36 MG/DL (0.70-1.30); GLOMERULAR FILTRATION RATE 4.6 (>49); POTASSIUM SERUM 3.8 MMOL/L (3.5-5.1); SODIUM LEVEL 135.0 MMOL/L (136-145)
[2025-02-22] MEDS: HEPARIN 1,000 UNITS/ML 10 ML VIAL (FOR RADIOLOGY & DIALYSIS ONLY) XX SCH (10:43)
[2025-02-22 12:59] VITALS: BP 133/76; TEMP 98.4; O2SAT 94
[2025-02-22] MEDS: HEPARIN SOD 5000 UNITS/ML 1 ML VIAL/SYRINGE SQ SCH (13:23)
[2025-02-22] MEDS: VANCOMYCIN HCL 1,000 MG, VIAL MATE ADAPTER 1 EACH in NS 250 ML IV SCH (15:54)
[2025-02-22 20:00] VITALS: BP 120/70; TEMP 98.9; O2SAT 93
[2025-02-22 23:46] VITALS: BP 122/61; TEMP 97.9; O2SAT 94
[2025-02-23 03:49] VITALS: BP 114/59; TEMP 98.2; O2SAT 94
[2025-02-23 04:00] VITALS: O2SAT 95
[2025-02-23 06:49] LABS: BASO # 0.1 10^3/uL (0.0-0.2); BASO % 0.4 % (0.0-1.0); EOS # 1.3 10^3/uL (0.0-0.5); EOS % 9.0 % (0.0-3.0); LYMPH # 2.5 10^3/uL (1.5-5.0); LYMPH % 17.2 % (24.0-44.0); MONO # 1.5 10^3/uL (0.0-0.8); MONO % 10.3 % (2.0-8.0); NEUTROPHILS # 8.9 10^3/uL (1.5-8.5); NEUTROPHILS % 62.7 % (36.0-66.0); PLATELET COUNT, AUTOMATED 375 10^3/uL (150-450)
[2025-02-23 07:14] LABS: CALCIUM LEVEL 8.6 MG/DL (8.3-10.6); CARBON DIOXIDE LEVEL 25.0 MMOL/L (20-31); CHLORIDE LEVEL 101.0 MMOL/L (98-107); CREATININE FOR GFR 7.77 MG/DL (0.70-1.30); GLOMERULAR FILTRATION RATE 7.3 (>49); POTASSIUM SERUM 3.8 MMOL/L (3.5-5.1); SODIUM LEVEL 137.0 MMOL/L (136-145)
[2025-02-23 10:03] VITALS: BP 125/71
[2025-02-23 12:20] VITALS: BP 141/80; TEMP 98.3; O2SAT 97
[2025-02-23] MEDS: ceFAZolin SOD 1 GM in DEXTROSE 5% (D5W) ADV/MINI-BAG 50 ML IV SCH (18:24)
[2025-02-23 20:00] VITALS: BP 159/78; TEMP 98.2; O2SAT 94
[2025-02-24 04:00] VITALS: BP 150/95; TEMP 97.8; O2SAT 94
[2025-02-24] MEDS ORDERED: SODIUM CHLORIDE 0.9% 1000 ML IV PRN (06:00)
[2025-02-24] MEDS ORDERED: HEPARIN 1,000 UNITS/ML 10 ML VIAL (FOR RADIOLOGY & DIALYSIS ONLY) IV PRN (06:00)
[2025-02-24 06:44] LABS: BASO # 0.1 10^3/uL (0.0-0.2); BASO % 0.6 % (0.0-1.0); EOS # 1.6 10^3/uL (0.0-0.5); EOS % 10.5 % (0.0-3.0); LYMPH # 3.6 10^3/uL (1.5-5.0); LYMPH % 23.1 % (24.0-44.0); MONO # 1.5 10^3/uL (0.0-0.8); MONO % 9.8 % (2.0-8.0); NEUTROPHILS # 8.6 10^3/uL (1.5-8.5); NEUTROPHILS % 55.6 % (36.0-66.0); PLATELET COUNT, AUTOMATED 385 10^3/uL (150-450)
[2025-02-24 07:22] LABS: CALCIUM LEVEL 8.8 MG/DL (8.3-10.6); CARBON DIOXIDE LEVEL 22.0 MMOL/L (20-31); CHLORIDE LEVEL 103.0 MMOL/L (98-107); CREATININE FOR GFR 9.6 MG/DL (0.70-1.30); GLOMERULAR FILTRATION RATE 5.7 (>49); POTASSIUM SERUM 4.0 MMOL/L (3.5-5.1); SODIUM LEVEL 139.0 MMOL/L (136-145)
[2025-02-24 07:53] LABS: C REACTIVE PROTEIN QUANTITATIV 1.37 MG/DL (<1.0)
[2025-02-24] MEDS: LIDOCAINE 1% SDV 5 ML VIAL SC PRN (10:14)
[2025-02-24] MEDS: HEPARIN 1,000 UNITS/ML 10 ML VIAL (FOR RADIOLOGY & DIALYSIS ONLY) XX SCH (10:14)
[2025-02-24] MEDS ORDERED: ISOVUE-370 76% 100 ML VIAL As Ordered ONE (10:31)
[2025-02-24 12:52] VITALS: BP 159/73; TEMP 99.1
[2025-02-24] MEDS: ACETAMINOPHEN 325 MG TAB PO PRN (13:05)
[2025-02-24 14:13] VITALS: TEMP 97.4
[2025-02-24 20:00] VITALS: BP 144/72; TEMP 98.2; O2SAT 95
[2025-02-25 04:00] VITALS: BP 139/75; TEMP 97.7; O2SAT 97
[2025-02-25 06:50] LABS: CALCIUM LEVEL 9.1 MG/DL (8.3-10.6); CARBON DIOXIDE LEVEL 26.0 MMOL/L (20-31); CHLORIDE LEVEL 103.0 MMOL/L (98-107); CREATININE FOR GFR 6.4 MG/DL (0.70-1.30); GLOMERULAR FILTRATION RATE 9.2 (>49); POTASSIUM SERUM 4.2 MMOL/L (3.5-5.1); SODIUM LEVEL 139.0 MMOL/L (136-145)
[2025-02-25] MEDS ORDERED: LIDOCAINE 1% SDV 5 ML VIAL SC PRN (10:20)
[2025-02-25] MEDS ORDERED: HEPARIN 1,000 UNITS/ML 10 ML VIAL (FOR RADIOLOGY & DIALYSIS ONLY) IV PRN (10:20)
[2025-02-25] MEDS ORDERED: SODIUM CHLORIDE 0.9% 1000 ML IV PRN (10:20)
[2025-02-25] MEDS: HEPARIN 1,000 UNITS/ML 10 ML VIAL (FOR RADIOLOGY & DIALYSIS ONLY) XX SCH (11:34)
[2025-02-25] MEDS ORDERED: COLA100C5 PO (12:05)
== END 2025-02-25 16:00 | disposition home or self-care (01) | DRG 579 ==
LOC: M ED 06:26 → M ED INP 17:07 → M MS4PR 20:09
PROVIDERS: ADMIT Internal Medicine; ATTEND Internal Medicine
PROC: 0WBF0ZZ Excision of Abdominal Wall, Open Approach (ICD-10-PCS; 2025-02-20)
PROC: 5A1D70Z Performance of Urinary Filtration, Intermittent, Less than 6 Hours Per Day (ICD-10-PCS; principal; 2025-02-22)
PROC: 0WPGX0Z Removal of Drainage Device from Peritoneal Cavity, External Approach (ICD-10-PCS; 2025-02-22)
DX: L02.211 Cutaneous abscess of abdominal wall (principal); N18.6 End stage renal disease; T85.71XA Infection and inflammatory reaction due to peritoneal dialysis catheter, initial encounter; Q61.3 Polycystic kidney, unspecified; I12.0 Hypertensive chronic kidney disease with stage 5 chronic kidney disease or end stage renal disease; D72.829 Elevated white blood cell count, unspecified; F17.200 Nicotine dependence, unspecified, uncomplicated; J44.9 Chronic obstructive pulmonary disease, unspecified; K21.9 Gastro-esophageal reflux disease without esophagitis; Z79.82 Long term (current) use of aspirin; Z79.899 Other long term (current) drug therapy; G44.009 Cluster headache syndrome, unspecified, not intractable; I25.10 Atherosclerotic heart disease of native coronary artery without angina pectoris; B95.61 Methicillin susceptible Staphylococcus aureus infection as the cause of diseases classified elsewhere; Y84.1 Kidney dialysis as the cause of abnormal reaction of the patient, or of later complication, without mention of misadventure at the time of the procedure

== ENCOUNTER → 2025-06-08 | Outpatient (CLI) | payer MEDICARE, OTHER ==
[~2025-06-08] MED LIST changes: +ISOVUE-370 76% 100 ML VIAL As Ordered ONE; +METO1TAB7 PO; +POTA10CA70 PO
== END ==
LOC: M RAD 10:04
PROVIDERS: ATTEND Physician Assistant
DX: N18.6 End stage renal disease (principal); K65.1 Peritoneal abscess; Q61.3 Polycystic kidney, unspecified; Z49.02 Encounter for fitting and adjustment of peritoneal dialysis catheter
CPT/HCPCS: 74177; Q9967

== ENCOUNTER → 2025-06-23 | Outpatient (CLI) | payer MEDICARE, OTHER ==
[~2025-06-23] MED LIST changes: -ISOVUE-370 76% 100 ML VIAL As Ordered ONE
== END ==
LOC: M IRPRO 13:28
PROVIDERS: ATTEND Internal Medicine Nephrology
DX: K70.31 Alcoholic cirrhosis of liver with ascites (principal)